=== PATIENT | female | born 1940 | race African-American/Black ===

== ENCOUNTER 2020-09-29 10:16 | Outpatient (CLI) | payer MEDICARE, BC, SELFPAY ==
--- NOTE | ~2020-09-29 | MR_ITS ---
EXAMINATION: MR brain/brain stem wo con EXAM DATE: 09/29/2020 11:16 INDICATION: F03.90 - Unspecified dementia without behavioral disturbance. Memory issue. Tremors. TECHNIQUE: Magnetic resonance imaging (MRI) of the brain/brain stem obtained without contrast. Deyvi al T1, axial diffusion, gradient echo (T2*), T1, T2, FLAIR sequences obtained. There is no prior st udy for comparison. FINDINGS: There are no areas of restricted diffusion to suggest acute infarction. There is no acute hemorrhage seen on the T2*, a hemosiderin sensitive sequence. No intraparenchymal brain mass lesion. 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 Moderate to severe frontal lobe, otherwise mild to moderate white matter hyperintensity consistent with microangiopathy. There is mild prominence of the sulci and ventricles related to cerebral atrophy. There are no extra-axial collections. Flow voids are seen in the cerebral arteries on the T2-weighted sequences consistent with their expected p atency. Patient has had bilateral ocular lens surgery. Soft tissue is unremarkable. IMPRESSION: 1. No acute intracranial findings. 2. Frontal lobe predominant microangiopathy. Reviewed, dictated and finalized at location A.
== END 2020-09-29 10:17 | disposition home or self-care (01) ==
PROVIDERS: PCP Family Medicine; Visit Provider Psychiatry & Neurology Neurology
DX: F03.90 Unspecified dementia, unspecified severity, without behavioral disturbance, psychotic disturbance, mood disturbance, and anxiety (principal); G20 Parkinson's disease
CPT/HCPCS: 70551

== ENCOUNTER 2020-10-02 10:19 | Outpatient (CLI) | payer MEDICARE, BC, SELFPAY ==
--- NOTE | 2020-10-04 09:52 | WPDNEUROLOGY ---
Neurology EEG Report General Information Date of Study: 10/02/20 TEST EEG DIAGNOSIS dementia CONDITION OF RECORDING Awake drowsy and sleep with photic stimulation EEG NUMBER [id number] CLINICAL HISTORY patient reported she has noticed a decline in her memory. EEG DESCRIPTION Whole record consists of low-voltage 15 to 21 hertz per 2nd beta activity during drowsiness. Bilateral symmetrical sleep activity seen during deeper stages of sleep. Photic stimulation produced normal drive. Hyperventilation not done. Non paroxysmal. Nonfocal. Nonlateralizing. IMPRESSION No significant abnormalities noted
== END 2020-10-02 10:20 | disposition home or self-care (01) ==
PROVIDERS: PCP Family Medicine; Visit Provider Psychiatry & Neurology Neurology
DX: F03.90 Unspecified dementia, unspecified severity, without behavioral disturbance, psychotic disturbance, mood disturbance, and anxiety (principal)
CPT/HCPCS: 95816

== ENCOUNTER 2023-06-24 10:24 | Outpatient (CLI) | payer MEDICARE, BC, SELFPAY ==
--- NOTE | 2023-06-24 11:00 | NEURO_ITS ---
Impression: # Complains of increasing numbness of left hand. # Bilateral Carpal Tunnel Syndrome, left more than right. # No ulnar neuropathy. # Mildly abnormal needle/EMG exam in left APB. Nerve Conduction Studies Anti Sensory Summary Table Stim Site NR Peak (ms) P-T Amp (?V) Site1 Site2 Delta-P (ms) Dist (cm) Jose (m/s) Left Median Anti Sensory (2-3nd Digit) Wrist 4.5 41.6 Wrist 2-3nd Digit 4.5 14.0 31 Wrist 4.7 29.1 Wrist 2-3nd Digit 4.5 14.0 31 Right Median Anti Sensory (2-3nd Digit) Wrist 3.9 58.3 Wrist 2-3nd Digit 3.9 14.0 36 Wrist 4.0 87.4 Wrist 2-3nd Digit 3.9 14.0 36 Left Radial Anti Sensory (Base 1st Digit) Wrist 2.1 34.5 Wrist Base 1st Digit 2.1 0.0 Right Radial Anti Sensory (Base 1st Digit) Wrist 2.9 22.8 Wrist Base 1st Digit 2.9 0.0 Left Ulnar Anti Sensory (5th Digit) Wrist 2.9 69.1 Wrist 5th Digit 2.9 14.0 48 Right Ulnar Anti Sensory (5th Digit) Wrist 2.6 39.7 Wrist 5th Digit 2.6 14.0 54 Motor Summary Table Stim Site NR Onset (ms) O-P Amp (mV) Site1 Site2 Delta-0 (ms) Dist (cm) Jose (m/s) Left Median Motor (Abd Poll Brev) Wrist 5.2 2.5 Elbow Wrist 4.4 26.0 59 Elbow 9.6 2.9 Right Median Motor (Abd Poll Brev) Wrist 3.5 1.5 Elbow Wrist 4.9 27.0 55 Elbow 8.4 3.3 Left Ulnar Motor (Abd Dig Minimi) Wrist 2.7 5.4 A Elbow Wrist 5.3 30.0 57 A Elbow 8.0 4.3 Right Ulnar Motor (Abd Dig Minimi) Wrist 2.7 5.8 A Elbow Wrist 4.8 28.0 58 A Elbow 7.5 4.8 F Wave Studies NR F-Lat (ms) L-R F-Lat (ms) Left Median (Mrkrs) (Abd Poll Brev) 27.99 0.76 Right Median (Mrkrs) (Abd Poll Brev) 27.23 0.76 Left Ulnar (Mrkrs) (Abd Dig Min) 26.11 0.76 Right Ulnar (Mrkrs) (Abd Dig Min) 26.87 0.76 EMG Side Muscle Nerve Root Ins Act Fibs Amp Dur Recrt Comment Right 1stDorInt Ulnar C8-T1 Nml Nml Nml Nml Nml Right Ext Indicis Radial (Post Int) C7-8 Nml Nml Nml Nml Nml Right Ext Digitorum Radial (Post Int) C7-8 Nml Nml Nml Nml Nml Right BrachioRad Radial C5-6 Nml Nml Nml Nml Nml Right PronatorTeres Median C6-7 Nml Nml Nml Nml Nml Right Abd Poll Brev Median C8-T1 Nml Nml Nml Nml Nml Right ABD Dig Min Ulnar C8-T1 Nml Nml Nml Nml Nml Left 1stDorInt Ulnar C8-T1 Nml Nml Nml Nml Nml Left Ext Indicis Radial (Post Int) C7-8 Nml Nml Nml Nml Nml Left Ext Digitorum Radial (Post Int) C7-8 Nml Nml Nml Nml Nml Left BrachioRad Radial C5-6 Nml Nml Nml Nml Nml Left PronatorTeres Median C6-7 Nml Nml Nml Nml Nml Left Abd Poll Brev Median C8-T1 Nml Nml Incr >12ms +2 Left ABD Dig Min Ulnar C8-T1 Nml Nml Nml Nml Nml MTDD
== END 2023-06-24 10:25 | disposition home or self-care (01) ==
LOC: ANHNEURO 10:26
PROVIDERS: PCP Family Medicine; Visit Provider Plastic Surgery
DX: G56.03 Carpal tunnel syndrome, bilateral upper limbs (principal); R25.1 Tremor, unspecified; E11.9 Type 2 diabetes mellitus without complications; G31.84 Mild cognitive impairment of uncertain or unknown etiology; R94.131 Abnormal electromyogram [EMG]
CPT/HCPCS: 95886; 95911

== ENCOUNTER 2024-11-19 13:36 | Outpatient (CLI) | payer MEDICARE, BC, SELFPAY ==
--- NOTE | ~2024-11-19 | MR_ITS ---
EXAMINATION: MR brain/brain stem wo con DATE: 11/19/2024 14:17 INDICATION: Tremor, unspecified. TECHNIQUE: Magnetic resonance imaging (MRI) of the brain and brainstem was performed without intravenous contrast. COMPARISON: Brain MRI 09/29/2020 FINDINGS: There is a punctate old microhemorrhage in the left basal ganglia. There is no acute ischemic infarct or abnormal mass lesion. There are scattered areas of nonspecific increased T2-weighted signal intensity in the cerebral white matter, left cerebellar white matter, brandy, thalami, and bilateral basal ganglia. The paranasal sinuses are clear. There are likely changes of ocular lens replacement surgeries. The mastoid air cells are normal. IMPRESSION: 1. Stable extensive nonspecific cerebral and cerebellar white matter disease and disease of the brandy and deep huang nuclei, which likely represents chronic small vessel ischemic disease. Reviewed, dictated and finalized at location E. IMPRESSION: 1. Stable extensive nonspecific cerebral and cerebellar white matter disease an d disease of the brandy and deep huang nuclei, which likely represents chronic sma ll vessel ischemic disease.
== END 2024-11-19 13:37 | disposition home or self-care (01) ==
PROVIDERS: PCP Family Medicine; Visit Provider Psychiatry & Neurology Neurology
DX: R25.1 Tremor, unspecified (principal); G31.84 Mild cognitive impairment of uncertain or unknown etiology; R90.82 White matter disease, unspecified
CPT/HCPCS: 70551

== ENCOUNTER 2024-11-30 12:42 | Outpatient (CLI) | payer MEDICARE, BC, SELFPAY ==
--- OUTSIDE RECORDS SUMMARY | 2024-11-02 08:30 | XMS_ITS ---
Author Organization 1 OF [facility] Address [address] [place] [address] Care Team Providers Care Heel Cementer Name Role Phone Lucian Bond MD Primary Care Provider Unavailab Chris Matos [facility] REASON FOR VISIT High Risk Foot care Encounters Encounter Location Date Provider Diagnosis 1 OF [facility] [address] [place] [address] 11/02/2024 Chris Betancur Plan Of Treatment Next Appt Details Provider Name:Chris Betancur, 01/13/2025 10:30:00 AM, [address], [address], [place], [address], Progress Notes * Haley MARSHALLDOB:[birth year] (84 yo F)Acc No.[id number]:11/02/2024 Progress Note Patient: Haley Vanessa Provider: Ryan Betancur DPM :1940 A ge:84 Y S ex:Female Date:11/02/2024 Address:[facility] [address] [place], [id number] Pcp:Lucian Bond MD Subjective: * Chief Complaints: * H igh Risk Foot care * Electronic signature of Markie Betancur DPM on 11/30/2024 at 12:49 PM CDT Sign off status: Pending * Provider: Ryan Betancur, DPM Date: 0 11/02/2024 Generated for Sultana baker/Kevin/Claire on: 0 11/30/2024 12:49 PM CDT
--- OUTSIDE RECORDS SUMMARY | 2024-11-04 05:30 | XMS_ITS ---
Author Organization [facility] Address [address] [place] [address] Care Team Providers Care Pole Climber Name Role Phone Lucian Bond MD Primary Care Provider Unavailab Chris Matos Unavailable [phone] REASON FOR VISIT SHOE dispense Encounters Encounter Location Date Provider Diagnosis 1 OF [facility] [address] [place] [address] 11/04/2024 Chris Betancur Plan Of Treatment Next Appt Details Provider Name:Chris Betancur, 01/13/2025 10:30:00 AM, [address], [address], [place], [address], Progress Notes * Haley MARSHALLDOB:[birth year] (84 yo F)Acc No.[id number]:11/04/2024 Progress Note Patient: Haley Vanessa Provider: Ryan Betancur DPM :1940 A ge:84 Y S ex:Female Date:11/04/2024 Address:[facility] [address] [place], [place] Pcp:Lucian Bond MD Subjective: * Chief Complaints: * S HOE dispense * Electronic signature of Markie Betancur DPM on 11/30/2024 at 12:49 PM CDT Sign off status: Pending * Provider: Ryan Betancur, DPM Date: 0 11/04/2024 Generated for Sultana baker/Kevin/Claire on: 0 11/30/2024 12:49 PM CDT
--- OUTSIDE RECORDS SUMMARY | 2024-11-04 06:00 | XMS_ITS ---
Author Organization 1 OF [facility] Address [address] [place] [address] Care Team Providers Care Database Development Project Manager Name Role Phone Lucian Bond MD Primary Care Provider Unavail Chris Matos Unavailable Allergies Allergen (clinical drug ingredient) Drug/Non Drug Allergy documented on EMR Reaction Allergy Type Onset Date Status Chocolate (uncoded) Unknown Allergy Active IBP, Sulfa (uncoded) stomach upset Allergy active Peanuts (uncoded) Unknown Allergy Ac tive amoxicillin Amoxicillin Unknown Drug Allergy Act taz ibuprofen Ibuprofen Unknown Drug Allergy Active REASON FOR VISIT High Risk Foot care Medications Medication SIG (Take, Route, Fr equency, Duration) Notes Start Date End Date Status Ketoconazole 2 % Cream 1 application Ext ernally 1-2 times daily for 4-6 weeks 06/15/2024 Active Escitalopram Oxalate Unknown Restasis Active Isosorbide Mononitrate Active Losartan Potassium A ctive PreserVision AREDS A ctive Atorvastatin Calcium Active Fish Oil Active Calcium Active Aspirin Active Spironolactone Activ e Ferrous Sulfate Acti ve Nitroglycerin Active hydrALAZINE HCl Acti ve Pantoprazole Sodium Active Sucralfate Active Iron Complex Active Vitamin D3 Active Ketoconazole Active Vital Signs Height 58 in 11/04/2024 Weight 105 lbs 11/04/2024 BMI 21.94 kg/m2 11/04/2024 Encounters Encounter Location Date Provider Diagnosis [facility] [address] [place] [address] 11/04/2024 Chris Betancur Type 2 diabetes mellitus with other diabetic neurological complication E11.49 ; Callus of foot L84 ; Onychogryphosis L60.2 and Tinea pedis of both feet B35.3 Assessments Encounter Date Diagnosis (ICD Code) Assessment Notes Treatment Notes Treatment Clinical Notes Section Notes 11/04/2024 Type 2 diabetes mellitus with other diabetic neurological complication (ICD-10 - E11.49) Considering the associated comorbidities and physical exam findings today, this patient is at substantial risk of developing serious foot complications in the absence of regular and professional palliative foot care. 11/04/2024 Callus of foot (ICD-10 - L84) 11/04/2024 Onychogryphosis (ICD-10 - L60.2) 11/04/2024 Tinea pedis of both feet (ICD-10 - B35.3) 11/04/2024 Other Plan: - Discontinue daily antifungal cream use as infection cleared - Debridement of calluses performed - Patient education on improved foot care routine - Advised to increase sitting periods throughout day to reduce foot pressure - Follow-up in couple months Interventions: - Callus debridement completed - Post-procedure lotion application - Assistance provided with footwear Evaluation: - Anticipate improved comfort following callus removal - Patient counseled on activity modification and foot care importance Plan Of Treatment Treatment Notes Assessment Notes Type 2 diabetes mellitus wit h other diabetic neurological complication Considering the associated comorbidities and physical exam findings today, this patient is at substantial risk of developing serious foot complications in the absence of regular and professional palliative foot care. Other Plan: - Discontinue daily antifungal cream use as infection cleared - Debridement of calluses performed - Patient education on improved foot care routine - Advised to increase sitting periods throughout day to reduce foot pressure - Follow-up in couple months Interventions: - Callus debridement completed - Post-procedure lotion application - Assistance provided with footwear Evaluation: - Anticipate improved comfort following callus removal - Patient counseled on activity modification and foot care importance Next Appt Details Follow Up: 10-12 weeks or co ntact office PRN with any concerns, Reason: Provider Name:Chris Betancur, 01/13/2025 10:30:00 AM, [address], [place], [address], Procedure Notes * Category Sub-Category Detail Notes PALLIATIVE FOOT CARE: Callus paring: (33803) Fi ve or more calluses as noted above reduced with a sterile scalpel blade Nail debride (18391): Debridement of at least six mycotic and/or hypertrophic nails performed:, utilizing manual and electric debridement the affected nails were reduced the nails in length and thickness with curettage of debris from nail margins performed as needed. Nail thickness reduced by:, 10% History and Physical Notes * HPI (History of Present Illness) Category Sub-Category Detail Notes Category Not es Primary reason for visit: 84 y/o diabetic female RTO for diabetic foot care. Patient reports no acute issues with nails or calluses today. At last visit with Dr. Metcalf, she was advised to continue using ketoconazole cream for tinea pedis. Today, she reports not using ketoconazole cream anymore, but feels she should be. - History of athlete's foot, previously treated with topical antifungal cream (last dispensed 10/01/2024) - Inconsistent use of prescribed topical medications and moisturizers - Very active throughout day with cooking, household activities, frequent stair climbing - Acknowledges being on feet excessively during day - PMHx: diabetes (noted 08/20/2024) MA assisting with visit: Chart Liana Bull Examination Category Sub-Category Detail Notes Category Not es General Examination Mental status: Cooperative, Oriented to person, place and time, Mood and affect: normal, Judgement and intellect: normal with appropriate response to questions Objective: - Athlete's foot appears cleared - Significant nail growth since last visit - Medial first metatarsal callus formation - Bunion present with evidence of shoe friction - Medial DIPJ callus at second toe - Subfifth metatarsal and heel callus formation Shoes today: tennis shoes Constitutional / Appearance: No acute di stress , Well nourished, Appropriate personal hygiene Lower Extremity VASCULAR: Venous insufficiency e tesfaye: Bilateral: leg, ankle, mild Pulses: DP pulse diminished bilateral; , PT pulse nonpalpable b/l Temperature gradient: decreased from pro ximal to distal, bilateral Pedal hair: sparse / absent, temi ateral Lower Extremity NEURO: Monofilament test (10 gram pressure) Exam of 03/30/2024: - - revealed absent sensation to at least two distinct locations of , multiple toes , forefoot , bilateral Vibration perception: Exam of 03/30/2024: - - noted significantly diminished / absent per evaluation with 128Hz tuning fork applied to distal hallux compared to ipsilateral medial malleolus , @ bilateral feet Muscle tone diminished, bilatera l Lower Extremity MSK: Foot deformities: Bilateral: , yu mmertoes Left lower extremity inspection and palp ation: No palpable masses or nodules noted. Right lower extremity inspection and pal pation: No palpable masses or nodules noted. Lower Extremity DERM: Skin: relatively dry, thin, atrophic, no suspicious lesions, bilateral Nails: Nail plates of: TA-T 9 appear elongated, relatively thickened, dystrophic, discolored, incurvated. Hyperkeratotic lesions LEFT foot: medial hallux IPJ, sub 3rd MTH, Medial DIPJ 2nd toe, medial 1st MTH Hyperkeratotic lesions RIGHT foot: sub 5 th MTH, plantar heel Evidence of tinea pedis noted: Compared to prior visit tinea appears improved with decreased erythema and scaling Progress Notes * Haley MARSHALLDOB:[birth year] (84 yo F)Acc No.[id number]:11/04/2024 Progress Note Patient: Ryan Haley Corley Provider: Ryan Betancur DPM :1940 A ge:84 Y S ex:Female Date:11/04/2024 Address:[address] [place], [place] [id number] Pcp:Lucian Bond MD Subjective: * Chief Complaints: * H igh Risk Foot care * HPI: M A assisting with visit:: Liana Wong. Radha duran reason for visit:: 84 y/o diabetic female RTO for diabetic foot care. Patient reports no acute issues with nails or calluses today. At last visit with Dr. Metcalf, she was advised to continue using ketoconazole cream for tinea pedis. Today, she reports not using ketoconazole cream anymore, but feels she should be. - History of athlete's foot, previously treated with topical antifungal cream (last dispensed 10/01/2024) - Inconsistent use of prescribed topical medications and moisturizers - Very active throughout day with cooking, household activities, frequent stair climbing - Acknowledges being on feet excessively during day - PMHx: diabetes (noted 08/20/2024). * Medical History: Diabetes, Anemia, Arthritis, DePression, GERD, High Cholesterol, High Blood pressure, Neuropathy, Pneumonia Arthritis Depression Anemia Hernia Stroke (CVA/TIA) Gastroesophageal reflux disease (GERD) Kidney disease Diabetes High cholesterol High blood pressure Neuropathy of Feet Pneumonia Thyroid disease Medical History Verified * Surgical History: Right foot bunion 2008 Foot/Ankle surgery Surgical History verified. * Hospitalization/Major Diagno stic Procedure: No Hospitalization Documented. Hospitalization Verified. * Family History: F amily History Verified.. Cancer. * Social History: Social History Verified. No Social History documented. * Medications: T akingSucralfate Vitamin D3 Ketoconazole Iron Complex Nitroglycerin hydrALAZINE HCl Spironolactone Ferrous Sulfate Pantoprazole Sodium Fish Oil PreserVision AREDS Atorvastatin Calcium Calcium Aspirin Losartan Potassium Restasis Isosorbide Mononitrate Ketoconazole 2 % Cream 1 application Externally 1-2 times daily for 4-6 weeks Taking Sucralfate Taking Vitamin D3 Taking Ketoconazole Taking Iron Complex Taking Nitroglycerin Taking hydrALAZINE HCl Taking Spironolactone Taking Ferrous Sulfate Taking Pantoprazole Sodium Taking Fish Oil Taking PreserVision AREDS Taking Atorvastatin Calcium Taking Calcium Taking Aspirin Taking Losartan Potassium Taking Restasis Taking Isosorbide Mononitrate Taking Ketoconazole 2 % Cream 1 application Externally 1-2 times daily for 4-6 weeks UnknownEscitalopram Oxalate Medication List reviewed and reconciled with the patientUnknown Escitalopram Oxalate Medication List reviewed and reconciled with the patient * Allergies: A moxicillinIbuprofenPeanutsChocolateIBP, Sulfa: stomach upset - AllergyyesAllergies Verified. Objective: * Vitals: W t:105lbs, Wt-k.63 kg, Ht:58in, BMI:21.94Index. * Examination: G eneral Examination: Constitutional / Appearance: N o acute distress , Well nourished, Appropriate personal hygiene. Mental status: C ooperative, Oriented to person, place and time, Mood and affect: normal, Judgement and intellect: normal with appropriate response to questions. Shoes today: t shaye shoes. O bjective: - Athlete's foot appears cleared - Significant nail growth since last visit - Medial first metatarsal callus formation - Bunion present with evidence of shoe friction - Medial DIPJ callus at second toe - Subfifth metatarsal and heel callus formation. L ower Extremity VASCULAR: : Pulses: D P pulse diminished bilateral; , PT pulse nonpalpable b/l. Temperature gradient: decreased from proximal to distal,bilateral. Pedal hair: s parse / absent, bilateral. Venous insufficiency edema: Bilateral:leg, ankle, mild.? L ower Extremity DERM: : Skin: r elatively dry, thin, atrophic, no suspicious lesions, bilateral. Nails: N ail plates of:TA-[id number] elongated,relatively thickened, dystrophic, discolored, incurvated.. Hyperkeratotic lesions LEFT foot: m edial hallux IPJ, sub 3rd MTH, Medial DIPJ 2nd toe, medial 1st MTH. Hyperkeratotic lesions RIGHT foot: s ub 5th MTH, plantar heel. Evidence of tinea pedis noted: C ompared to prior visit tinea appears improved with decreased erythema and scaling. L ower Extremity NEURO: : Muscle tone d iminished, bilateral. Monofilament test (10 gram pressure) E xam of 03/30/2024:? - - revealed absent sensation to at least two distinct locations of , multiple toes , forefoot , bilateral. Vibration perception: E xam of 03/30/2024: - - noted significantly diminished / absent per evaluation with 128Hz tuning fork applied to distal hallux compared to ipsilateral medial malleolus , @ bilateral feet. L ower Extremity MSK: : Left lower extremity inspection and palpation: N o palpable masses or nodules noted.. Right lower extremity inspection and palpation: N o palpable masses or nodules noted. . Foot deformities: B ilateral:, hammertoes. Assessment: * Assessment: 1. T ype 2 diabetes mellitus with other diabetic neurological complication - E11.49 (Primary)? 2. C allus of foot - L84 3 . O nychogryphosis - L60.2 ? 4 . T inea pedis of both feet - B35.3 Plan: * Treatment: 2. O thers Notes: Plan: - Discontinue daily antifungal cream use as infection cleared - Debridement of calluses performed - Patient education on improved foot care routine - Advised to increase sitting periods throughout day to reduce foot pressure - Follow-up in couple months Interventions: - Callus debridement completed - Post-procedure lotion application - Assistance provided with footwear Evaluation: - Anticipate improved comfort following callus removal - Patient counseled on activity modification and foot care importance * Procedures: P ALLIATIVE FOOT CARE:: Callus paring: ( [id number]) Five or more calluses as noted above reduced with a sterile scalpel blade. Nail debride (56710): D ebridement of at least six mycotic and/or hypertrophic nails performed:, utilizing manual and electric debridement the affected nails were reduced the nails in length and thickness with curettage of debris from nail margins performed as needed. Nail thickness reduced by:, 10%. * Preventive Medicine: Counseling: C are goal follow-up plan: BMI counseling provided to patient:?Lifestyle education Screenings: F ALL RISK SCREENING Fall Risk Assessment: O ne fall without injury in the past year * Follow Up: 1 0-12 weeks or contact office PRN with any concerns Billing Information: * Procedure Codes: 20964 DEBRIDE NAIL, 6 OR MORE. Modifiers: Q8, 59 [id number] TRIM SKIN LESIONS, OVER 4. Modifiers: Q8 * Electronic signature of Markie Betancur DPM on 11/30/2024 at 12:49 PM CDT Sign off status: Pending * Provider: Ryan Bteancur DPM Date: 0 11/04/2024 Generated for Sultana baker/Kevin/Claire on: 0 11/30/2024 12:49 PM CDT
--- OUTSIDE RECORDS SUMMARY | 2024-11-30 12:49 | XMS_ITS ---
[facility] 11th [place] [address] [place] [address] Bishop Linda MD Dysphonia (Primary Dx); Voice tremor 09/09/2024 10:40 AM CDT Lab [facility] [address] [place] [phone] from Last 3 Months Surgical History Surgery Date Site/Laterality Comments UT DILATION & CURETTAGE DX&/THER NONOBSTETRIC Dilation And Curettage - (Added by TW Conv) EXOSTECTOMY Simple Bunion Exostectomy (Silver Procedure) - (Added by TW Conv) UT UNLISTED PROCEDURE DENTOALVEOLAR STRUCTURES Oral Surgery Tooth Extraction - (Added by TW Conv) CATARACT EXTRACTION Cataract Surgery - (Added by TW Conv) EYE SURGERY Eye Surgery - LASER SURGERY (Added by TW ) COLONOSCOPY UPPER GASTROINTESTINAL ENDOSCOPY ADENOIDECTOMY when i was about 5 years od Medical History Medical History Date Comments Personal history of arthritis Ar thritis - (Added by TW Conv) Cardiac murmur Murmur - (Added by TW Conv) Gastric ulcer without hemorrhage or perforation Gastric ulcer - (Added by TW Conv) Cerebral infarction Stroke syndr ome - (Added by TW Conv) Personal history of other diseases of the circulatory system History of hypertension - (Added by TW Conv) Personal history of other diseases of the respiratory system Personal history of asthma - (Added by TW Conv) Personal history of other endocrine, nutritional and metabolic disease History of type 2 diabetes mellitus - (Added by TW Conv) Anxiety disorder Anxiety - (Adde d by TW Conv) Personal history of diseases of the blood and blood-forming organs and certain disorders involving the immune mechanism History of anemia - (Ad ded by TW Conv) Personal history of other diseases of the digestive system History of constipation - (Added by TW Conv) Personal history of healed traumatic fracture History of fracture of ankle - (Added by TW Conv) Personal history of other diseases of the digestive system History of esophageal reflux - (Added by TW Conv) Swelling, mass, or lump in h ead and neck Neck Cervical Mass Lateral (Cm) Cystic Anterior Deep To SCM - (Added by TW Conv) Spinal stenosis of cervical region Stenosis, cervical spine - (Added by TW Conv) Mastodynia Mastodynia - (Ad ded by TW Conv) Encounter for screening for malignant neoplasm of cervix Screening for malignant neoplasm of cervix - (Added by TW Conv) Hoarding disorder Hoarding behav ior - (Added by TW Conv) Generalized anxiety disorder Anx iety in acute stress reaction - (Added by TW Conv) Major depressive disorder, single episode Moderate depressive disorder - (Added by TW Conv) Major depressive disorder, recurrent, moderate (HCC) Major depressive disorder, recurrent episode, moderate with anxious distress - (Added by TW Conv) Postmenopausal bleeding PMB (pos tmenopausal bleeding) - (Added by TW Conv) Personal history of other specified conditions History of abdominal pain - (Added by TW Conv) Postmenopausal atrophic vaginitis Vaginal atrophy - (Added by TW Conv) Other pruritus Vaginal itching - (Added by TW Conv) Pelvic and perineal pain Pelvic pain - (Added by TW Conv) Encounter for gynecological examination without abnormal finding 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 - (Added by TW Conv) Anxiety Arthritis Diabetes mellitus (HCC) Peripheral neuropathy Hypertension Osteoporosis Stroke (HCC) Varicella Weight loss Motion sickness Chronic constipation GERD (gastroesophageal reflu x disease) at age19 Anemia Polycystic ovary syndrome TIA (transient ischemic attack) Thyroid disease over 50years ago Dizziness about 50years ago Headache canot remember HL (hearing loss) about 40 years ago Allergic rhinitis Dental disease when i was about 12 years old Nosebleed Sinusitis over 40 years ago Voice disorder voice became hoarse over 50 years ago Family History Medical History Relation Name Comments Prostate cancer Father Prostate Can cer - (Added by TW Conv) Stroke Mother Stroke Syndrome - (Added by TW Conv) Stroke Mother's Sister 1 Stroke Syn drome - (Added by TW Conv) Hypertension Mother's Sister 2 Hypertensi on - (Added by TW Conv) Diabetes Other Diabetes Mellit us - several aunts (Added by TW Conv) Relation Name Status Comments Father Mother Mother's Sister 1 Mother's Sister 2 Other Social History Tobacco Use Types Packs/Day Years Used Date Smoking Tobacco: Never Smokeless Tobacco: Never Alcohol Use Standard Drinks/Week Comments No 0 (1 standard drink = 0.6 oz pur e alcohol) Social Connection and Isolation Panel Answer Date Recorded In a typical week, how many times do you talk on the phone with family, friends, or neighbors? More than three times a week 08/21/2022 How often do you get togethe r with friends or relatives? Once a week 08/21/2022 How often do you attend [facility] or voodoo services? More than 4 times per year 08/21/2022 Do you belong to any clubs o r organizations such as mosque groups, unions, fraternal or athletic groups, or school groups? No 08/21/2022 How often do you attend meet ings of the clubs or organizations you belong to? Never 08/21/2022 Are you , , di vorced, , never , or living with a partner? 08/21/2022 AUDIT-C Answer Date Recorded Q1: How often do you have a drink containing alcohol? Never 03/26/2024 Q2: How many drinks containi ng alcohol do you have on a typical day when you are drinking? Patient does not drink Q3: How often do you have si x or more drinks on one occasion? Never 03/26/2024 Overall Financial Resource Strain (CARDIA) Answe r Date Recorded How hard is it for you to pa y for the very basics like food, housing, medical care, and heating? Not hard at all 08/21/2022 Hunger Vital Sign Answer Date Recorded Within the past 12 months, y ou worried that your food would run out before you got the money to buy more. Never true 08/22/19 23 Within the past 12 months, t he food you bought just didn't last and you didn't have money to get more. Never true 08/21/2022 PRAPARE - Transportation Answer Date Re corded In the past 12 months, has l ack of transportation kept you from medical appointments or from getting medications? No 08/08 In the past 12 months, has l ack of transportation kept you from meetings, work, or from getting things needed for daily living? No 08/21/2022 Housing Stability Vital Sign Answer Temo e Recorded In the last 12 months, was t here a time when you were not able to pay the mortgage or rent on time? No 08/21/2022 In the last 12 months, how many places have you lived? 1 08/21/2022 In the last 12 months, was t here a time when you did not have a steady place to sleep or slept in a retirement (including now)? No 08/21/2022 Personal Safety Answer Date Recorded Have you ever been in or are you currently in a harmful physical or emotional relationship or is someone making you feel afraid or unsafe? 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 Not on file Not on file Not on file Obstetrics History Last Filed Vital Signs Vital Sign Reading Time Taken Comments Blood Pressure 135/84 10/08/2024 10:39 AM CDT Pulse 77 10/08/2024 10:39 AM CDT Temperature 36 C (96.8 F) 03/26/2024 9:53 AM GAS CUTTING MACHINE OPERATOR Respiratory Rate 19 03/26/2024 10:10 AM GAS CUTTING MACHINE OPERATOR Oxygen Saturation 95% 10/08/2024 10:39 AM CDT Inhaled Oxygen Concentration - - Weight 48.1 kg (106 lb) 10/08/2024 10:39 AM CDT Height 142.2 cm (4' 8) 10/08/2024 10:39 AM CDT Body Mass Index 23.76 10/08/2024 10:39 AM CDT Plan of Treatment Health Maintenance Due Date Last Done Comments Depression Screening 1940 Foot Exam 1940 DTaP/Tdap/Td Vaccine (1 - Tdap) 07/30/1951 Hepatitis B Screening 1958 Zoster Vaccine (1 of 2) 1990 Well Visit 65+ 2005 Pneumococcal vaccine 65+ (2 of 2 - PCV) 01/25/2016 01/24/2015 Lipid Panel 06/28/2022 06/28/2021, 09/0 09/2018, 09/02/2017, Additional history exists Fall Risk Assessment 08/27/2023 08/26/2022 Osteoporosis Screening-Bone Density Scan 04/02/2024 04/02/2022, 10/26/2021, 12/23/2014, Additional history exists Influenza Vaccine (#1) 2024 8, 11/11/2016, 12/31/2015, Additional history exists Hemoglobin A1C 03/12/2025 09/09/2024, 04/11, 08/21/2022, Additional history exists Dilated Eye Exam 05/03/2025 05/03/2024, , 09/21/2021, Additional history exists Albumin Creatinine Ratio, Urine 05/07/2025 eGFR 09/09/2025 09/09/2024, 04/11, 09/07/2022, Additional history exists Procedures Procedure Name Priority Date/Time Associated Diagnosis Comments BURGER VISUAL FIELD - OU - BOTH EYES Routine 11/05/2024 11:46 AM CDT Primary open angle glaucoma (POAG) of both eyes, mild stage EGFR Routine 09/09/2024 11:00 AM CDT DIFFERENTIAL AUTO Routine 09/09/2024 11: 00 AM CDT HEMOGLOBIN A1C Routine 09/09/2024 11:00 AM CDT VITAMIN D 25 HYDROXY Routine 09/09/2024 11:00 AM CDT CBC WITH AUTO DIFFERENTIAL Routine 09/09/2024 11:00 AM CDT RENAL FUNCTION PANEL Routine 09/09/2024 11:00 AM CDT PROTEIN / CREATININE RATIO, URINE, RANDOM Routine 09/09/2024 10:52 AM CDT URINALYSIS, MACROSCOPIC Routine 09/09/2024 10:52 AM CDT ALBUMIN CREATININE RATIO, URINE Routine 05/07/2024 9:45 AM GAS CUTTING MACHINE OPERATOR DEXA AXIAL SKELETON BONE DENSITY 1 OR MORE SITES Schedule Routine, Read Routine (OP Routine) 04/02/2022 9:18 AM GAS CUTTING MACHINE OPERATOR Encounter for screening for osteoporosis TNI WITH LIPID PANEL Routine 11/14/2018 2:55 PM CDT from Last 3 Months or Most Recently Relevant to Health Maintenance Results * Burger Visual Field - OU - Both Eyes (11/05/2024 11:46 AM CDT) Pattern Deviation OS 1.88 dB CONTINUUM Pattern Deviation OD 1.46 dB CONTINUUM Mean Deviation OS -0.46 dB CONTINUUM Mean Deviation OD 0.81 dB CONTINUUM Anatomical Region Laterality Modality Head Visual Field Narrative 11/05/2024 11:46 AM CDT Right Eye Fixation was borderline. Cooperation was good. Reliability was good. Foveal threshold was normal. Findings include normal observations. Mean Deviation was 0.81 dB. Pattern Deviation was 1.46 dB. Left Eye Fixation was borderline. Cooperation was good. Reliability was good. Foveal threshold was normal. Findings include normal observations. Mean Deviation was -0.46 dB. Pattern Deviation was 1.88 dB. Notes Right eye (OD): full Left eye (OS): non specific, stable to prior, possible small inf nasal bjerrum scotoma vs artifact Harper Lombardo OD OPHTH VISUAL FIELD Final R esult * (ABNORMAL) eGFR (09/09/2024 11:00 AM CDT) eGFR 35(L) >=60 mL/min/1. 73 m2 Comment: Interpretive Data Reference Interval Normal >/= 90 mL/min/1.73m2 Mildly decreased* 60 - 89 mL/min/1.73m2 Mildly to moderately decreased 45 - 59 mL/min/1.73m2 Moderately to severely decreased 30 - 44 mL/min/1.73m2 Severely decreased 15 - 29 mL/min/1.73m2 Kidney Failure < 15 mL/min/1.73m2 *Relative to young adult level Estimated glomerular filtration rate is determined by the 2020 CKD-EPI equation recommended by the National Kidney Foundation (A Unifying Approach to GFR Estimation: Recommendations of the NKF-ASK Task Force on Reassessing the Inclusion of Race in Diagnosing Kidney Disease, JASN 2020). The CKD-EPI equation should not be used for patients with unstable renal function and has not been validated in children and those over 70. Current interpretive data was last reviewed 2021. Blood 09/09/2024 11:0 0 AM CDT 09/09/2024 11:50 AM CDT Jonatan Ruvalcaba MD LAB BLOOD ORDERABLES Final Resul t [facility] Department [place] [address] * Differential, auto (09/09/2024 11:00 AM CDT) Neutrophil abs 2.82 1.50 - 6.50 K/cumm Imm gran abs 0.01 0.00 - 0.10 K/cumm [facility] Lymphocyte abs 1.43 0.80 - 3.30 K/cumm [facility] Monocyte abs 0.42 0.20 - 0.80 K/cumm [facility] Eosinophil abs 0.19 0.00 - 0.50 K/cumm [facility] Basophil abs 0.04 0.00 - 0.10 K/cumm [facility] Neutrophil pct 57.4 % [facility] Comment: Interpretive Data Percent cell count reference ranges are not reported, since discordance with absolute values may lead to misinterpretation of CBC data. Current Interpretive Data was last revised on 2017. Imm gran pct 0.2 % [facility] Comment: Interpretive Data Percent cell count reference ranges are not reported, since discordance with absolute values may lead to misinterpretation of CBC data. Current Interpretive Data was last revised on 2017. Lymphocyte pct 29.1 % [facility] Comment: Interpretive Data Percent cell count reference ranges are not reported, since discordance with absolute values may lead to misinterpretation of CBC data. Current Interpretive Data was last revised on 2017. Monocyte pct 8.6 % [facility] Comment: Interpretive Data Percent cell count reference ranges are not reported, since discordance with absolute values may lead to misinterpretation of CBC data. Current Interpretive Data was last revised on 2017. Eosinophil pct 3.9 % [facility] Comment: Interpretive Data Percent cell count reference ranges are not reported, since discordance with absolute values may lead to misinterpretation of CBC data. Current Interpretive Data was last revised on 2017. Basophil pct 0.8 % [facility] Comment: Interpretive Data Percent cell count reference ranges are not reported, since discordance with absolute values may lead to misinterpretation of CBC data. Current Interpretive Data was last revised on 2017. Blood 09/09/2024 11:0 0 AM CDT 09/09/2024 11:52 AM CDT Jonatan Ruvalcaba MD LAB BLOOD ORDERABLES Final Resul t Performing Organization Address [facility] Co de Phone Number [facility] [address] [place] [address] * (ABNORMAL) CBC with auto differential (09/09/2024 11:00 AM CDT) WBC 4.91 3.80 - 9.90 K/cumm Hgb 10.2(L) 11.9 - 15.5 g/dL [facility] Hct 33.3(L) 35.6 - 45.5 % [facility] Plt 239 150 - 400 K/cumm [facility] MPV 10.2 9.1 - 12.3 fL [facility] RBC 3.47(L) 3.90 - 5.20 M/cumm [facility] MCV 96.0 81.3 - 96.4 fL [facility] MCH 29.4 27.1 - 33.3 pg [facility] MCHC 30.6(L) 32.3 - 35.7 g/dL [facility] RDW CV 12.2 11.1 - 14.9 % [facility] RDW SD 42.5 35.7 - 48.1 fL [facility] NRBC abs 0.00 0.00 - 0.01 K/cumm [facility] Blood 09/09/2024 11:0 0 AM CDT 09/09/2024 11:52 AM CDT Jonatan Ruvalcaba MD LAB BLOOD ORDERABLES Final Resul t Performing Organization Address [facility] Co de Phone Number [facility] [address] [place] [address] * Vitamin D 25 hydroxy (09/09/2024 11:00 AM CDT) Pathologist [facility] Vitamin D 25-OH 43.0 30.0 - 80.0 ng/mL Blood 09/09/2024 11:0 0 AM CDT 09/09/2024 11:50 AM CDT Jonatan Ruvalcaba MD LAB BLOOD ORDERABLES Final Resul t Performing Organization Address [facility] de Phone Number [facility] [address] [address] * Hemoglobin A1c (09/09/2024 11:00 AM CDT) Pathologist [facility] Hgb A1C 5.3 4.0 - 5.6 % Estimated Average Glucose 105 mg/dL [facility] Comment: The ADA recommends reporting an estimated Average Glucose (eAG) with all Hemoglobin A1c results using the equation derived from a study of 507 normal and diabetic adults. Minority populations were underrepresented and children were not included. (Diabetes Care 31:6215-0160, 2008). The eAG is not equivalent to a fasting glucose. Blood 09/09/2024 11:0 0 AM CDT 09/09/2024 11:52 AM CDT Jonatan Ruvalcaba MD LAB BLOOD ORDERABLES Final Resul t Performing Organization Address [facility] de Phone Number [facility] [address] [address] * (ABNORMAL) Renal function panel (09/09/2024 11:00 AM CDT) [facility] Sodium 145 135 - 145 mmol/L Potassium, pl 4.7 3.3 - 4.9 mmol/L [facility] Chloride 107 97 - 110 mmol/L [facility] CO2 27 22 - 32 mmol/L [facility] Anion gap 11 2 - 15 mmol/L [facility] BUN 40(H) 6 - 25 mg/dL [facility] Creatinine 1.48(H) 0.60 - 1.10 mg/dL [facility] Glucose 115 70 - 199 mg/dL [facility] Comment: Interpretive Data Fasting glucose >/= 126 mg/dl is diagnostic for diabetes. Fasting is defined as no caloric intake for at least 8 hours. Fasting glucose between 100 mg/dl to 125 mg/dl is diagnostic of prediabetes. In a patient with classic symptoms of hyperglycemia or hyperglycemic crisis, a random glucose >/= 200 mg/dl is diagnostic for diabetes. In the absence of unequivocal hyperglycemia, results should be confirmed by repeat testing. The classification and Diagnosis of Diabetes Diabetes Care 2021; 46: S19-S40. Current interpretive data was last revised 2022. Calcium 10.8(H) 8.5 - 10.3 mg/dL [facility] Phosphorus, pl 3.7 2.3 - 4.5 mg/dL [facility] Albumin 4.7 3.5 - 5.0 g/dL [facility] Blood 09/09/2024 11:0 0 AM CDT 09/09/2024 11:50 AM CDT us Jonatan Ruvalcaba MD LAB BLOOD ORDERABLES Final Resul t [facility] [address] [facility] Department [place] [address] * Urinalysis, macroscopic Urine (09/09/2024 10:52 AM CDT) Color, ur Yellow Yellow Clarity, ur Clear Clear [facility] Specific gravity, ur 1.017 1.003 - 1.030 [facility] pH, urine 5.5 [facility] Comment: Interpretive Data U rine pH is affected by diet, medications, systemic acid-base disturbances, and renal tubular function. pH may affect urinary stone formation. For example, urine pH below 6.0 may help reduce the tendency for calcium phosphate stones and pH greater than 6.0 may reduce the tendency for uric acid stone formation. Source: [facility] Current Interpretive Data was last revised on 2017 Protein, ur ql Negative Negative [facility] Glucose, ur ql Negative Negative [facility] Ketones, ur Negative Negative [facility] Bilirubin, ur Negative Negative [facility] Blood, ur Negative Negative [facility] Urobilinogen, ur <2.0 <2.0 mg/dL [facility] Nitrite, ur Negative Negative [facility] Leukocyte esterase, ur Negative Negative [facility] Urine 09/09/2024 10:5 2 AM CDT 09/09/2024 11:55 AM CDT Result [facility] Jonatan Ruvalcaba MD LAB MICROBIOLOGY - GENERAL ORDER DIMITRIS Final Result Performing Organization Address [facility] de Phone Number [address] [address] * (ABNORMAL) Protein / creatinine ratio, urine, random (09/09/2024 10:52 AM CDT) Protein, ur, quant 54.0 mg/dL Comment: Interpretive Data No reference range established. Current interpretive data was last revised 2018. Creatinine Ur 103.0 mg/dL [facility] Comment: Interpretive Data No reference range established. Current interpretive data was last revised 2018. Protein/creatinin e ratio 524.3(H) 0.0 - 180.0 mg/g CR [facility] Urine 09/09/2024 10:5 2 AM CDT 09/09/2024 11:55 AM CDT Result [facility] Jonatan Ruvalcaba MD LAB URINE ORDERABLES Final Resul t Performing Organization Address [facility] de Phone Number [address] [address] * Albumin Creatinine Ratio, Urine (05/07/2024 9:45 AM GAS CUTTING MACHINE OPERATOR) Albumin Ur 21.1 mg/L Comment: Interpretive Data No reference range established. Current interpretive data was last revised 2018. Creatinine Ur 104.0 mg/dL [facility] Comment: Interpretive Data No reference range established. Current interpretive data was last revised 2018. Albumin Creatinine Ratio, Ur 20 1 - 29 mg/g [facility] Urine 05/07/2024 9:45 AM GAS CUTTING MACHINE OPERATOR 05/07/2024 10:12 AM GAS CUTTING MACHINE OPERATOR Jonatan Ruvalcaba MD LAB URINE ORDERABLES Final Resul t Performing Organization Address [facility] de Phone Number [address] Department [place] [address] * Dexa Axial Skeleton Bone Density 1 or 2 Site (04/02/2022 9:18 AM GAS CUTTING MACHINE OPERATOR) Anatomical Region Laterality Modality Body N/A Mammography 04/03/2022 6:15 AM GAS CUTTING MACHINE OPERATOR Narrative 04/03/2022 6:43 AM GAS CUTTING MACHINE OPERATOR EXAM DESCRIPTION: DEXA AXIAL SKELETON BONE DENSITY 1 OR MORE SITES REASON FOR STUDY: 81 y/o year old F with given history of screening. 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 FINDINGS: AP LUMBAR SPINE L1-L4: Total BMD is 0.994 g/cm2 T-score is -1.4 Dissimilar scan types or analysis methods precludes assessment for calculating a significant change. LEFT HIP: Total BMD is 0.887 g/cm2 T-score is -0.9 Dissimilar scan types or analysis methods precludes assessment for calculating a significant change. Femoral neck BMD is 0.815 g/cm2 T-score is -1.0 FRAX: 10 year risk for a major osteoporotic fracture is 4.3 %, 10 year risk for a hip fracture is 0.7 % IMPRESSION: Based on the lumbar spine bone mineral density (T-score -1.4 ) the patient has low bone mass . REFERENCE: Bone mineral density: Normal (T-score above or = -1.0) Low bone mass (T-score between -1.0 and -2.5) replaces the previously used term osteopenia Osteoporosis (T-score = or below -2.5) Medical evaluation for secondary causes of low bone mineral density may be appropriate. FRAX is a World Health Organization validated fracture risk assessment tool that calculates a person's 10 year probability of a major osteoporosis related fracture and hip fracture. According to the National Osteoporosis Foundation guidelines, postmenopausal women and men age 50 or older with low bone mass and a 10 year probability of a major osteoporosis related fracture = or greater than 20% or a 10 year probability of a hip fracture = or greater than 3% should be considered for treatment. For further information, including treatment recommendations, please refer to the 2013 ISCD Official Positions (http://www.iscd.org) and the NOF's Clinician's Guide to Prevention and Treatment of Osteoporosis (http://www.nof.org/professionals/clinical-guidelines) THIS IS AN ELECTRONICALLY VERIFIED FINAL REPORT 04/03/2022 6:43 AM - Electronically signed by Rehan Simon M.D. MF: NABIL Report ID: [id number] Reading Location: [id number] Procedure Note Rehan Simon MD - 04/03/2022 EXAM DESCRIPTION: DEXA AXIAL SKELETON BONE DENSITY 1 OR MORE SITES REASON FOR STUDY: 81 y/o year old F with given history ofscreening. 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 FINDINGS: AP LUMBAR SPINE L1-L4: Total BMD is 0.994 g/cm2 T-score is -1.4 Dissimilar scan types or analysis methods precludes assessment for calculating a significant change. LEFT HIP: Total BMD is 0.887 g/cm2 T-score is -0.9 Dissimilar scan types or analysis methods precludes assessment for calculating a significant change. Femoral neck BMD is 0.815 g/cm2 T-score is -1.0 FRAX: 10 year risk for a major osteoporotic fracture is 4.3 %, 10 year risk fora hip fracture is 0.7 % IMPRESSION: Based on the lumbar spine bone mineral density (T-score-1.4 ) the patient has low bone mass . REFERENCE: Bone mineral density: Normal (T-score above or = -1.0) Low bone mass (T-score between -1.0 and -2.5) replaces thepreviously used term osteopenia Osteoporosis (T-score = or below -2.5) Medical evaluation for secondary causes of low bone mineral density may be appropriate. FRAX is a World Health Organization validated fracture risk assessmenttool that calculates a person's 10 year probability of a major osteoporosisrelated fracture and hip fracture. According to the National OsteoporosisFoundation guidelines, postmenopausal women and men age 50 or older with low bonemass and a 10 year probability of a major osteoporosis related fracture = or greater than 20% or a 10 year probability of a hip fracture = or greaterthan 3% should be considered for treatment. For further information, including treatment recommendations, please referto the 2013 ISCD Official Positions (http://www.iscd.org) and the NOF's Clinician's Guide to Prevention and Treatment of Osteoporosis (http://www.nof.org/professionals/clinical-guidelines) THIS IS AN ELECTRONICALLY VERIFIED FINAL REPORT 04/03/2022 6:43 AM - Electronically signed by Rehan Simon M.D. MF: [id number] Report ID: [id number] Reading Location: [place] [address] Sammi Taylor HAZARDOUS SUBSTANCES SCIENTIST IMG DXA PROCEDURES Final Re sult * TNI with LIPID PANEL (11/14/2018 2:55 PM CDT) Troponin I <0.300 0.000 - 0.300 ng/mL [facility] Comment: Reference using DANNY Chemiluminescence Negative: Repeat in 4-6 hours as indicated. Triglycerides 39 0 - 149 mg/dL [facility] Comment: National Lipid Association/NCEP Guidelines: Normal < 150 mg/dL Borderline high 150-199 mg/dL High 200-499 mg/dL Very High >=500 mg/dL Cholesterol 163 0 - 199 mg/dL [facility] Comment: National Lipid Association/NCEP Guidelines: Desirable < 200 mg/dL Borderline high: 200-239 mg/dL High Risk: >=240 mg/dL HDL Cholesterol 109 mg/dL [facility] Comment: Reference Ranges: Males: >=40 mg/dL Females: >=50 mg/dL LDL Cholesterol, Calc 46 0 - 129 mg/dL [facility] Comment: National Lipid Association/NCEP Guidelines: Optimal < 100 mg/dL Near Optimal 100-129 mg/dL Borderline high 130-159 mg/dL High >=160 mg/dL Cholesterol/HDL Ratio 1.5 [facility] Comment: Optimal < 3.5:1 High > 5:1 11/14/2018 2:55 PM CDT 11/14/2018 2:59 PM CDT Narrative [facility] - 11/14/2018 3:31 PM CDT Comment Glucose, blood, POC Resulting Agency Comment ER us [facility]LOOD ORDERABLES Final Res ult [facility] [address] [place] [address], [facility] [phone] from Last 3 Months or Most Recently Relevant to Health Maintenance Insurance MEDICARE [facility] [place] MED[place] MEDICARE [facility] [place] Advance Directives For more information, please contact: [phone] * LIMITED - No CPR (Latest Code Status on File) Date Activated Date Inactivated Comments 08/20/2022 5:19 PM 08/26/2022 8:57 PM Question Answer Comments Provide aggressive medical m anagement before a full cardiopulmonary arrest occurs. Use antibiotics, IV Fluids, and medical treatment unless specifically selected below: No intubation Healthcare Agents on File Name Relationship Healthcare Agent [facility] p Communication Fela Mccullough Daughter Health Care Agent Care Teams Stamping Operator Relationship Specialty Start Date End Date Lucian Bond MD [address] [address] PCP - General 05/19/19
--- OUTSIDE RECORDS SUMMARY | 2024-11-30 12:49 | XMS_ITS | Patient Health Record ---
Author Organization [facility] Address [address] [address] Care Team Providers Care Colors Custodian Name Role Phone Piper Guardadoir Primary Care Provider [phone] Reason For Referral No Information Medications Medication SIG (Take, Route, Frequency, Duration) Notes Start Date End Date Status Mikey-Mag 1TAB PO DAILY [facility] Active Cod Liver Oil 1CAP PO DAILY [facility] Active GNP Evening Licking Oil 1000MG PO [facility] Active Omeprazole 40MG PO DAILY [facility] Act taz Losartan Potassium 100MG PO DAILY [facility] Active metFORMIN HCl 500MG PO AM [facility] Active Lumigan 0.01% OP PM [facility] Activ e Restasis 0.05% OP BID [facility] Acti ve amLODIPine Besylate 5MG PO DAILY [facility] Active ISOSORBIDE MONONITRATE ER 30MG PO DAILY [facility] Active NITROSTAT 0.4 MG TAB 0.4MG SL PRN Active Immunizations Vaccine Route Administration Date Status Comme nts Influenza (split), 3 yrs and above Unknown 12/03/2013 P ending Inactivated Problems Problem Type SNOMED Code ICD Code Onset Dates Problem Status W/U Status Risk Notes Problem Diabetes mellitus (52136437) Diabetes mellitus (250) Active confirmed Problem Type II diabetes mellitus uncontrolled (197866038) Diabetes mellitus without mention of complication, type II or unspecified type, uncontrolled (250.02) Active confirmed Problem Vitamin D deficiency (48148729) Unspecified vitamin D deficiency (268.9) Active confirmed Problem 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 Problem Hyperlipidemia (16404244) Other and unspecified hyperlipidemia (272.4) Active confirmed Problem Neurosis (939913944) Anxiety, 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 Problem Depressive disorder (28511029) Depressive disorder, not elsewhere classified (311) Active confirmed Problem Aortic valve disorder (1806636) Aortic valve disorders (424.1) Active confirmed Problem Visual disturbance (05148286) Other specified visual disturbances (368.8) Active confirmed Problem Essential hypertension (01578169) Unspecified essential hypertension (401.9) Active confirmed Problem Esophageal reflux (161192018) Esophageal reflux (530.81) Active confirmed Problem Backache (183780688) Unspecified backache (724.5) Active confirmed Problem Degeneration of cervical intervertebral disc (99707120) Degeneration of cervical intervertebral disc (722.4) Active confirmed Problem Cervicalgia (08349914) Cervicalgia (723.1) Active confirmed Problem Dizziness and giddiness (914706357) Dizziness and giddiness (780.4) Active confirmed Problem Symptoms involvi ng head and neck (784) Active confirmed Problem Heart murmur (800362933) Undiagnosed cardiac murmurs (785.2) Active confirmed Problem Shortness of breath (808871065) Shortness of breath (786.05) Active confirmed Problem Electrocardiogram abnormal (615564923) Nonspecific abnormal electrocardiogram (ECG) (EKG) (794.31) Active confirmed Plan Of Treatment No Information Insurance Providers Payer Name Payer Address Payer Phone Subscriber Number Group Number Insured Name Patient Relationship to Insured Coverage Start Date Coverage End Date MEDICARE PART AB [address] [place] [phone] [id number] CHANO GIBSON Self - patient is the insured [facility] 121 PPO [address] [place], [place] [id number] CHANO GIBSON Self - patient is the insured Medical (General) History Surgical History Surgery Date(Month/Year) biopsy left breast ; biopsy of bladder ; Cataract Surgery ; DNC ; Foot Surgery ; oral surgery ; Tonsil Surgery ;
--- OUTSIDE RECORDS SUMMARY | 2024-11-30 12:49 | XMS_ITS | Encounter Summary ---
Author Organization [facility] Healthcare Address [address] [place] [address] Care Team Providers Care Baby Counselor Name Role Phone Lucian Bond MD Primary Care Provider [phone] Encounter Details Date Type Department Care Team (Late st Contact Info) Description 03/18/2023 Documentation [facility] OP Physical Therapy [address] [place] [address] Sadie Pettit, PT Social History Tobacco Use Types Packs/Day Years [...] week 08/21/2022 How often do you attend chur or gnosticist services? More than 4 times per year 08/21/2022 Do you belong to any clubs o r organizations such as jehovah's witness groups, unions, fraternal or athletic groups, or school groups? No 08/21/2022 How often do you attend meet ings of the clubs or organizations you belong to? Never 08/21/2022 Are you , , di vorced, , never , or living with a partner? 08/21/2022 AUDIT-C Answer Date Recorded Q1: How often do you have a drink containing alcohol? Never 08/21/2022 Q2: How many drinks containi ng alcohol do you have on a typical day when you are drinking? Patient does not drink Q3: How often do you have si x or more drinks on one occasion? Never 08/21/2022 Overall Financial Resource Strain (CARDIA) Answe r [...] place to sleep or slept in a residential (including now)? No 08/21/2022 Personal Safety Answer Date Recorded Have you ever been in or are you currently in a harmful physical or emotional relationship or is someone making you feel afraid or unsafe? 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 difficile Comment:03/25/24 Patient received Vanc po after positive C. Diff on 09/07/24 for 10 days. No further issue with C. Diff. S&S after Tx. Resolve. ML 08/20/2022 09/07/2022 03/25/2024 5:[address] documented as of this encounter Care Teams Baby Counselor Relationship Specialty Start Date End Date Lucian Bond MD [address] [address] PCP - General 05/19/19 documented as of this encounter
--- OUTSIDE RECORDS SUMMARY | 2024-11-30 12:49 | XMS_ITS | Clinical Summary ---
Author Organization [facility] Address [address] [place] [address] Phone Care Team Providers Care Pipe Organ Mechanic Apprentice Name Role Phone Lucian Bond MD Primary Care Provider [phone] Allergies Active Allergy Reactions Criticality Noted Date Comments Amoxicillin nausea 04/05/2024 Atorvastatin Elevated Liver Enzyme Low 04/05/2024 Ibuprofen Vomiting,nausea 04/05/2024 Iodinated Contrast Media 04/05/2024 Peanut Oil Rash Low 04/05/2024 Penicillins Vomiting,nausea 04/05/2024 Sulfa Antibiotics Hives 04/05/2024 Wheat 04/05/2024 Medications aspirin (ST LAURA) 81 MG EC tablet Take 81 mg by mouth 1 (one) time each day Active Calcium Carbonate-Vitamin D (CALCIUM 600+D PO) Take 1 tablet by mouth Active omega-3 (FISH OIL) 1200 MG capsule Take 3 capsules by mouth 1 (one) time each day Active hydrALAZINE (APRESOLINE) 50 MG tablet Take 50 mg by mouth in the morning and 50 mg in the evening. Active isosorbide mononitrate (IMDUR) 60 MG 24 hr tablet Take 60 mg by mouth in the morning and 60 mg in the evening. Active losartan (COZAAR) 50 MG tablet Take 50 mg by mouth 1 (one) time each day Active spironolactone (ALDACTONE) 25 MG tablet Take 0.5 tablets by mouth 1 (one) time each day Active bimatoprost (LATISSE) 0.03 % ophthalmic solution Administer 1 drop into both eyes every night Place 1 drop on applicator and apply along skin of upper eyelid at base of eyelashes daily at bedtime; rpt for 2nd eye with clean applicator Active pantoprazole (PROTONIX) 20 MG EC tablet Take 20 mg by mouth in the morning and 20 mg in the evening. Take before meals. Active Multiple Vitamins-Minerals (PRESERVISION AREDS PO) Take by mouth 1 (one) time each day Active nitroglycerin (NITROSTAT) 0.[address] 0.4 mg under the tongue every 5 (five) minutes if needed for chest pain Active fluticasone (FLONASE) 50 MCG/ACT nasal spray Administer 1 spray into each nostril 1 (one) time each day if needed for rhinitis Shake gently. Before first use, prime pump. After use, clean tip and replace cap. Active mometasone (ELOCON) 0.1 % cream Apply topically 1 (one) time each day if needed Active ketoconazole (NIZORAL) 2 % cream Apply topically 1 (one) time each day Active Cholecalciferol (Vitamin D) 25 MCG (1000 UT) tablet Take by mouth 1 (one) time each day Active cycloSPORINE (RESTASIS) 0.05 % ophthalmic emulsion Administer 1 drop into both eyes in the morning and 1 drop in the evening. Active mirtazapine (REMERON) 7.5 MG tablet Take 7.5 mg by mouth every night 0.5 tab nightly Active iron polysaccharides (NU-IRON) 150 MG capsule Take 1 capsule (150 mg total) by mouth 1 (one) time each day 30 capsule 3 10/01/19 25 Active Active Problems Problem Noted Date Diagnosed Date Anemia in chronic kidney disease 05/13/2024 Proteinuria 05/13/2024 Vitamin D deficiency 05/13/2024 Hypertension 04/05/2024 Stage 3b chronic kidney disease 04/05/2024 Resolved Problems Problem Noted Date Diagnosed Date Resolved Date Hypernatremia 04/06/2024 05/13/2024 Hyperlipidemia 04/05/2024 05/13/2024 Encounters Date Type Department Care Team Description 09/30/2024 Refill [facility] [address] [place] [address] Marli Rowe RN 09/16/2024 1:00 PM CDT Office Visit [facility] [address] [place] [address] Jonatan Ruvalcaba MD Stage 3b chronic kidney disease ([facility]) (Primary Dx); Essential hypertension from Last 3 Months Family History Medical History Relation Comments Cancer Father Heart disease Mother Relation Status Comments Father Mother Social History Tobacco Use Types Packs/Day Years Used Date Smoking Tobacco: Never Smokeless Tobacco: Never Alcohol Use Standard Drinks/Week Comments Never 0 (1 standard drink = 0.6 oz pur e alcohol) Comments Unknown Sex and Gender Information Value Date Recorded Sex Assigned at Not on file Legal Sex Female 10:35 AM [facility] Gender Identity Not on file Sexual Orientation Not on file Last Filed Vital Signs Vital Sign Reading Time Taken Comments Blood Pressure 124/69 09/16/2024 12:43 PM CDT Pulse 75 09/16/2024 12:43 PM CDT Temperature - - Respiratory Rate - - Oxygen Saturation - - Inhaled Oxygen Concentration - - Weight 48.5 kg (107 lb) 09/16/2024 12:43 PM CDT Height 144.8 cm (4' 9) 09/16/2024 12:43 PM CDT Body Mass Index 23.15 09/16/2024 12:43 PM CDT Plan of Treatment Upcoming Encounters Date Type Department Care Team ([facility] st Contact Info) Description 01/25/2025 1:00 PM COMPUTER TECHNOLOGY TRAINER Office Visit [facility] [address] [address] Jonatan Ruvalcaba MD [address] [id number] Health Maintenance Due Date Last Done Comments Diabetic Foot Exam 1950 Pneumococcal PPSV23/PCV13 65 + Years / High and Highest Risk (1 of 5 - PCV) 07/30/1959 Ophthalmology Exam 04/01/2024 04/01/2023, 08/21/2018 Influenza Vaccine (#1) 2024 [place] [address] MEDICARE [facility] Care Teams Pipe Organ Mechanic Apprentice Relationship Specialty Start Date End Date Lucian Bond MD [address] [place] [address] PCP - General 03/23/24
--- OUTSIDE RECORDS SUMMARY | 2024-11-30 12:49 | XMS_ITS | Patient Health Record ---
Author Organization [facility] Address [address] [place], [place] [address] Care Team Providers Care Smog Technician Name Role Phone NIEVES DEWEY Unavailable [phone] Oscar Palomo Unavailable Unavailable Reason For Referral No Information Medications Medication SIG (Take, Route, Frequency, Duration) Notes Start Date End Date Status polyethylene glycol 400 0.004 MG/MG / propylene glycol 0.003 MG/MG Ophthalmic Gel polyethylene glycol 400 0.004 MG/MG / propylene glycol 0.003 MG/MG Ophthalmic GelOriginal Medicationpolyethylene glycol 400 0.004 MG/MG / propylene glycol 0.003 MG/MG Ophthalmic Gel *Reorder from Friendly Score for e 7 Active bimatoprost 0.1 MG/ML Ophthalmic Solution [Lumigan] bimatoprost 0.1 MG/ML Ophthalmic Solution [Lumigan]Original Medicationbimatoprost 0.1 MG/ML Ophthalmic Solution [Lumigan] *Reorder from Friendly Score for eRx and Interaction Alerts* 7 Active calcium carbonate 1500 MG / cholecalciferol 800 UNT Oral Tablet [Caltrate Plus D] ORAL calcium carbonate 1500 MG / cholecalciferol 800 UNT Oral Tablet [Caltrate Plus D]Original Medicationcalcium carbonate 1500 MG / cholecalciferol 800 UNT Oral Tablet [Caltrate Plus D] *Reorder from Friendly Score for e 7 Active Plan Of Treatment No Information Insurance Providers Payer Name Payer Address Payer Phone Subscriber Number Group Number Insured Name Patient Relationship to Insured Coverage Start Date Coverage End Date Medicare Part B [facility] [address] [facility] [place] [address] [id number] CHANO LINARES Self - patient is the insured [facility] ([facility]) ATTN CLAIMS [address] [facility] [address] [id number] CHANO LINARES Self - patient is the insured [facility] [address] [place], [place] [id number] CHANO LINARES Self - patient is the insured
--- OUTSIDE RECORDS SUMMARY | 2024-11-30 12:49 | XMS_ITS | Clinical Summary ---
Author Organization [facility] Care Team Providers Care Visual Merchandiser Name Role Phone Unavailable Primary Care Provider Unavailabl e Social History Tobacco Use Types Packs/Day Years Used Date Smoking Tobacco: Never Assessed Comments Unknown Sex and Gender Information Value Date Recorded Sex Assigned at Not on file Legal Sex Female 11:31 AM CDT Gender Identity Not on file Sexual Orientation Not on file Plan of Treatment Health Maintenance Due Date Last Done Comments Hepatitis C Virus (HCV) Screening 1940 TdaP Immunization 1940 Zoster Immunization (1 of 2) 1990 Respiratory Syncytial Virus (RSV) Immunization (Adult) (1 - 1-dose 75+ series) 07/30/2015 Pneumococcal Immunization (50+ years) (2 of 2 - PCV) 03/28/2021 03/28/2020, 01/24/2015 SARS-COV-2 Immunization (3 - season) 2023 05/12/2020, 04/18/2020 Influenza Immunization (#1) 11/08/202401/08, 01/13/2019, 12/07/2017, Additional history exists Hepatitis B Immunization Aged Out No longer eligible based on patient's age to complete this topic Human Papillomavirus (HPV) Immunization Aged Out No longer eligible based on patient's age to complete this topic Meningococcal Immunization (ACWY) Aged Out No longer eligible based on patient's age to complete this topic Rotavirus Immunization Aged Out No lo nger eligible based on patient's age to complete this topic
--- OUTSIDE RECORDS SUMMARY | 2024-11-30 12:50 | XMS_ITS | Clinical Summary ---
Author Organization [facility] Address [facility] [place] [address] Care Team Providers Care Production Pattern Maker Name Role Phone Lucian Bond MD Primary Care Provider [phone] Allergies Active Allergy Reactions Criticality Noted Date Comments Amoxicillin Nausea Only 12/14/2019 Ibuprofen Nausea Only,Nausea a nd Vomiting Low 05/05/2009 Peanut Oil Unknown 06/26/2021 Penicillins Nausea and Vomiting Low 05/05/2009 Smoke Unknown 06/26/2021 Sulfa Antibiotics Hives 05/05/2009 Other reaction(s): Urticaria Wheat Unknown 06/26/2021 Medications aspirin EC 81 MG tablet Take 81 mg by mouth daily. Active cycloSPORINE 0.05 % ophthalmic emulsion Place 1 drop into both eyes 2 (two) times daily as needed (dry eye). Active fluticasone propionate 50 MCG/ACT nasal spray 1 spray by Nasal route daily as needed. 0 Active nitroglycerin 0.[address] 0.4 mg under the tongue every 5 (five) minutes as needed for Chest Pain. Active calcium carb-cholecalci ferol 600-400 MG-UNIT Tab tablet Take 1 tablet by mouth daily. Active vitamin E 100 UNIT capsule Take 1,000 Units by mouth daily. Active bimatoprost 0.01 % Solution Place 1 drop into both eyes nightly at bedtime. Active isosorbide mononitrate ER 30 MG 24 hr tablet Take 1 tablet (30 mg total) by mouth daily. 30 tablet 0 Active atorvastatin 20 MG tablet Take 20 mg by mouth daily. 2 Active escitalopram 20 MG tablet Take 20 mg by mouth daily. 2 Active furosemide 20 MG tablet Take 20 mg by mouth daily. 2 Active losartan 50 MG tablet Take 50 mg by mouth daily. 2 Active Multiple Vitamins-Minera ls (OCUVITE-LUTEIN OR) PreserVision AREDS-2 Active Cod Liver Oil 1000 MG Cap cod liver oil Acti ve amLODIPine 10 MG tablet Take 1 tablet (10 mg total) by mouth daily. 30 tablet 2 Active famotidine 10 MG tablet Take 1 tablet (10 mg total) by mouth 2 (two) times daily. 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 Follow. Primary open angle glaucoma (POAG) of both eyes, mild stage 08/12/2018 Overview (12/14/2019): Last Assessment & Plan: [facility] for [facility] visual field (HVF) and OCT. CPM. RTC 4 mos with DFE. Myalgia, other site 07/17/2018 Neck pain 07/16/2018 Right shoulder pain 07/16/2018 Lumbar pain 07/16/2018 Breast pain 05/19/2017 Anaclitic depression 03/20/2017 Memory impairment 09/16/2016 Polyp of cervix 05/03/2016 Vaginal discharge 07/21/2014 Fibroids 06/20/2014 Pelvic mass 06/15/2014 Chest pain 05/05/2009 Family History Medical History Relation Comments Breast Cancer Other Relation Status Comments Other Social History Tobacco Use Types Packs/Day Years Used Date Smoking Tobacco: Never Smokeless Tobacco: Never Alcohol Use Standard Drinks/Week Comments Never 0 (1 standard drink = 0.6 oz pur e alcohol) AUDIT-C Answer Date Recorded Q1: How often do you have a drink containing alc ohol? Never 12/14/2019 Average Number of Drinks Not on file 020 Frequency of Binge Drinking Not on file 08/2019 Exercise Vital Sign Answer Date Recorde d On average, how many days pe r week do you engage in moderate to strenuous exercise (like a brisk walk)? 0 days 12/14/2019 On average, how many minutes do you engage in exercise at this level? 0 min 12/14/2019 Hunger Vital Sign Answer Date Recorded Within the past 12 months, y ou worried that your food would run out before you got the money to buy more. Never true 12/14/19 20 Within the past 12 months, t he food you bought just didn't last and you didn't have money to get more. Never true 12/14/2019 PRAPARE - Transportation Answer Date Re corded In the past 12 months, has l ack of transportation kept you from medical appointments or from getting medications? No 08/2019 In the past 12 months, has l ack of transportation kept you from meetings, work, or from getting things needed for daily living? No 12/14/2019 Comments No Sex and Gender Information Value Date Recorded Sex Assigned at Female 06/28/2024 12:35 PM CDT Legal Sex Female 9:26 PM CDT Gender Identity Not on file Sexual Orientation Not on file Last Filed Vital Signs Vital Sign Reading Time Taken Comments Blood Pressure 163/82 03/18/2024 7:45 PM BEREAVEMENT COORDINATOR Pulse 74 03/18/2024 4:07 PM BEREAVEMENT COORDINATOR Temperature 37.2 C (98.9 F) 03/18/2024 4:07 PM BEREAVEMENT COORDINATOR Respiratory Rate 18 03/18/2024 7:45 PM BEREAVEMENT COORDINATOR Oxygen Saturation 98% 03/18/2024 7:45 PM BEREAVEMENT COORDINATOR Inhaled Oxygen Concentration - - Weight 49.9 kg (110 lb) 03/18/2024 4:07 PM BEREAVEMENT COORDINATOR Height 144.8 cm (4' 9) 03/18/2024 4:07 PM BEREAVEMENT COORDINATOR Body Mass Index 23.8 03/18/2024 4:07 PM BEREAVEMENT COORDINATOR Plan of Treatment Health Maintenance Due Date Last Done Comments DTaP, Tdap and Td Vaccines (1 - Tdap) 07/30/1959 Pneumococcal Vaccine: 50+ Years (1 of 1 - PCV) 1990 Zoster Vaccines (1 of 2) 1990 Annual Medicare Wellness Visit 2005 RSV Immunization or 60+ Years (1 - 1-dose 75+ series) 07/30/2015 COVID-19 Vaccine (1 - season) 2024 Dexa Scan (General) Completed 04/02/2022, 04/02/2022, 10/26/2021, Additional history exists Meningococcal B Vaccine Aged Out No l onger eligible based on patient's age to complete this topic Meningococcal Vaccine Aged Out No teddy johny eligible based on patient's age to complete this topic RSV Immunizations Under 20 Months Aged Out No longer eligible based on patient's age to complete this topic Goals Goal Patient Goal Type Associated Problems Recent Progress Patient-Stated? 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 The NOF recommend adults under the age of 50 need 1000 mg of calcium and 400-800 IU of vitamin D daily. Effective therapy for the prevention and treatment of osteoporosis include bisphosphonates. Follow-up: People with diagnosed cases of osteoporosis or at high risk for fracture should have regular bone mineral density test. For patients eligible for Medicare, routine testing is allowed once every 2 years. Testing frequency can be increased to one year for patients who have rapidly progressing disease, those who are receiving or discontinuing medical therapy to restore bone mass, or have additional risk factors. Referred By: GENESIS YIN Interpreted By: Nathan Watson MD, 10/26/2021 3:03 PM Narrative 10/26/2021 3:04 PM CDT EXAMINATION: BONE DENSITY/DEXA INDICATIONS: Asymptomatic menopausal state; osteoporosis screening COMPARISON: None TECHNIQUE: DEXA bone minimal density evaluation was performed in the AP projection over the lumbar spine and over both hips in the AP projection utilizing standard imaging techniques. ASSESSMENT: The BMD measured at the AP spine L1-L4 is 0.981 g/cm? with a T-score of -0.6. The BMD measured at the left femoral neck is 0.787 g/cm? with a T-score of -0.6. The BMD measured at the left hip is 0.875 g/cm? with a T-score of -0.6. The BMD measured at the right femoral neck is 0.764 g/cm? with a T-score of - 0.8. The BMD measured at the right hip is 0.846 g/cm? with a T-score of -0.8. FRAX 10-year fracture risk: Major Osteoporotic Fracture: 5.0% Hip Fracture: 0.9% Procedure Note Nathan Watson MD - 10/26/2021 EXAMINATION: BONE DENSITY/DEXA INDICATIONS: Asymptomatic menopausal state; osteoporosis screening COMPARISON: None TECHNIQUE: DEXA bone minimal density evaluation was performed in the APprojection over the lumbar spine and over both hips in the AP projectionutilizing standard imaging techniques. ASSESSMENT: The BMD measured at the AP spine L1-L4 is 0.981 g/cm? with a T-score of-0.6. The BMD measured at the left femoral neck is 0.787 g/cm? with a T-score of-0.6. The BMD measured at the left hip is 0.875 g/cm? with a T-score of -0.6. The BMD measured at the right femoral neck is 0.764 g/cm? with a T-scoreof -0.8. The BMD measured at the right hip is 0.846 g/cm? with a T-score of -0.8. FRAX 10-year fracture risk: Major Osteoporotic Fracture: 5.0% Hip Fracture: 0.9% IMPRESSION: WHO Classification: Normal RECOMMENDATIONS: All patients should ensure an adequate intake of dietary calcium andvitamin D. The NOF recommend adults under the age of 50 need 1000 mg ofcalcium and 400-800 IU of vitamin D daily. Effective therapy for theprevention and treatment of osteoporosis include bisphosphonates. Follow-up: People with diagnosed cases of osteoporosis or at high risk for fractureshould have regular bone mineral density test. For patients eligible forMedicare, routine testing is allowed once every 2 years. Testing frequencycan be increased to one year for patients who have rapidly progressingdisease, those who are receiving or discontinuing medical therapy torestore bone mass, or have additional risk factors. Referred By: GENESIS YIN Interpreted By: Nathan Watson MD, 10/26/2021 3:03 PM Genesis Yin MD DEXA Final Result from Last 3 Months or Most Recently Relevant to Health Maintenance Insurance MEDICARE Advance Directives Documents on File Type Date Recorded Patient Vice President For Instruction Expl anation Advance Directives and Living Will 07/26/2021 10:32 AM 06/27/2021 POLST * DNR (Latest Code Status on File) Date Activated Date Inactivated Comments 06/26/2021 5:31 PM 06/28/2021 2:58 PM * Full Code Date Activated Date Inactivated Comments 12/14/2019 3:46 PM 12/15/2019 2:42 PM Care Teams Production Pattern Maker Relationship Specialty Start Date End Date Lucian Bond MD PCP - General FAMILY PRACTICE 10/29/19
--- OUTSIDE RECORDS SUMMARY | 2024-11-30 12:50 | XMS_ITS | Patient Health Record ---
Author Organization [facility] OF [facility] Address [address] [facility] [address] [place] [address] Care Team Providers Care Corporate Strategy Analyst Name Role Phone Lucian Bond MD Primary Care Provider Unavailab Chris Matos Unavailable Cornel Metcalf Unavailable [phone] Allergies Allergen (clinical drug ingredient) Drug/Non Drug Allergy documented on EMR Reaction Allergy Type Onset Date Status Chocolate (uncoded) Unknown Allergy Active IBP, Sulfa (uncoded) stomach upset Allergy active Peanuts (uncoded) Unknown Allergy Ac tive amoxicillin Amoxicillin Unknown Drug Allergy Act taz ibuprofen Ibuprofen Unknown Drug Allergy Active Reason For Referral No Information Medications Medication SIG (Take, Route, Fr equency, Duration) Notes Start Date End Date Status Losartan Potassium A ctive Spironolactone Activ e Ketoconazole 2 % Cream 1 application Ext ernally 1-2 times daily for 4-6 weeks 06/15/2024 Active Ferrous Sulfate Acti ve Escitalopram Oxalate Unknown Nitroglycerin Active Restasis Active hydrALAZINE HCl Acti ve Isosorbide Mononitrate Active PreserVision AREDS A ctive Sucralfate Active Atorvastatin Calcium Active Pantoprazole Sodium Active Fish Oil Active Iron Complex Active Vitamin D3 Active Calcium Active Ketoconazole Active Aspirin Active Social History Tobacco Use: Social History Observation Description Date Details (start date - stop date) Never Smoker NA - NA Social History Tobacco Use: Social Info Question Answer Notes Tobacco Use/Smoking Are you a nonsmoker Additional Details Category Social Info Options Details Miscellaneous: Exercise: Sedentary Occupation: Retired Living with: spouse Drugs/Alcohol: Alcohol use: [place] alcohol use Recreational drugs Patient eva s recreational drug use Problems Problem Type SNOMED Code ICD Code Onset Dates Problem Status W/U Status Risk Notes Problem Peripheral circulatory disorder associated with diabetes mellitus (015839853) Type 2 diabetes mellitus with other circulatory complications (E11.59) Active confirmed Problem Neurologic disorder associated with type II diabetes mellitus (548039032) Type 2 diabetes mellitus with other diabetic neurological complication (E11.49) Active confirmed Problem 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) Active confirmed Problem Peripheral vascular disease (971135894) PAD (peripheral artery disease) (I73.9) Active confirmed Problem Intermittent claudication (79706866) Intermittent claudication (I73.9) Active confirmed Problem Polyneuropathy due to type 2 diabetes mellitus (709791704) Type 2 diabetes mellitus with diabetic polyneuropathy, unspecified whether ad terminal makeup operator insulin use (E11.42) Active confirmed Vital Signs Height 58 in 11/04/2024 Weight 105 lbs 11/04/2024 BMI 21.94 kg/m2 11/04/2024 Encounters Encounter Location Date Provider Diagnosis 1 OF [facility] [address] [place] [id number] 11/04/2024 Alejandrobrant Pipe Type 2 diabetes mellitus with other diabetic neurological complication E11.49 ; Callus of foot L84 ; Onychogryphosis L60.2 and Tinea pedis of both feet B35.3 1 OF [facility] [address] [place] [address] 01/06/2024 Cornel Metcalf Type 2 diabetes mellitus with other diabetic neurological complication E11.49 ; Callus of foot L84 ; Onychogryphosis L60.2 ; Tinea pedis of both feet B35.3 and PAD (peripheral artery disease) I73.9 [facility] [address] [place] [address] 03/30/2024 Cornel Metcalf Type 2 diabetes mellitus with other diabetic neurological complication E11.49 ; Callus of foot L84 and Onychogryphosis L60.2 [facility] [address] [place] [address] 06/15/2024 Cornel Metcalf Type 2 diabetes mellitus with other diabetic neurological complication E11.49 ; Callus of foot L84 ; Onychogryphosis L60.2 and Tinea pedis of both feet B35.3 1 OF [facility] [address] [place] [address] 08/20/2024 Cornel Metcalf Type 2 diabetes mellitus with other diabetic neurological complication E11.49 ; Callus of foot L84 ; Onychogryphosis L60.2 and Tinea pedis of both feet B35.3 1 OF [facility] [address] [place] [address] 08/31/2024 Cornel Metcalf Type 2 diabetes mellitus with other diabetic neurological complication E11.49 1 OF [facility] [address] [place] [address] 10/01/2024 Chris Betancur Type 2 diabetes mellitus with other diabetic neurological complication E11.49 1 OF [facility] [place] [address] [place] [address] 01/14/2024 Chris Betancur 1 OF [place] [address] [place] [address] 09/09/2024 Chris Betancur 1 OF [place] [place] [address] [place] [address] 10/14/2024 Chris Betancur Assessments Encounter Date Diagnosis (ICD Code) Assessment Notes Treatment Notes Treatment Clinical Notes Section Notes 01/06/2024 Type 2 diabetes mellitus with other diabetic neurological complication (ICD-10 - E11.49) Considering the associated comorbidities and physical exam findings today, this patient is at substantial risk of developing serious foot complications in the absence of regular and professional palliative foot care. 03/30/2024 Callus of foot (ICD-10 - L84) 03/30/2024 Type 2 diabetes mellitus with other diabetic neurological complication (ICD-10 - E11.49) Considering the associated comorbidities and physical exam findings today, this patient is at substantial risk of developing serious foot complications in the absence of regular and professional palliative foot care. 06/15/2024 Callus of foot (ICD-10 - L84) 06/15/2024 Type 2 diabetes mellitus with other diabetic neurological complication (ICD-10 - E11.49) Considering the associated comorbidities and physical exam findings today, this patient is at substantial risk of developing serious foot complications in the absence of regular and professional palliative foot care. Advised to avoid walking w/o shoes on and discussed the importance of wearing properly fitted and supportive shoes and how wearing a shoe that does not fit properly can lead to blisters, open sores, infections and amputation. Recommended diabetic shoes and inserts. Patient's insurance requires diabetic shoes be provided by a contracted supplier. Rx dispensed 08/20/2024 Type 2 diabetes mellitus with other diabetic neurological complication (ICD-10 - E11.49) Considering the associated comorbidities and physical exam findings today, this patient is at substantial risk of developing serious foot complications in the absence of regular and professional palliative foot care. 08/31/2024 Type 2 diabetes mellitus with other diabetic neurological complication (ICD-10 - E11.49) 10/01/2024 Type 2 diabetes mellitus with other diabetic neurological complication (ICD-10 - E11.49) 11/04/2024 Type 2 diabetes mellitus with other diabetic neurological complication (ICD-10 - E11.49) Considering the associated comorbidities and physical exam findings today, this patient is at substantial risk of developing serious foot complications in the absence of regular and professional palliative foot care. 03/30/2024 Onychogryphosis (ICD-10 - L60.2) 08/20/2024 Callus of foot (ICD-10 - L84) 11/04/2024 Callus of foot (ICD-10 - L84) 06/15/2024 Onychogryphosis (ICD-10 - L60.2) 01/06/2024 Callus of foot (ICD-10 - L84) 01/06/2024 Onychogryphosis (ICD-10 - L60.2) 06/15/2024 Tinea pedis of both feet (ICD-10 - B35.3) Evaluation today included a review of medical history, review of systems, discussion of exam findings, and review of diagnoses and treatment options. I dicussed the nature and etiology of tinea pedis as well as the treatment options. Patient was also educated on risk factors for tinea pedis and advised to take measures to reduce the moisture about the skin of the feet. Recommended treatment today consisting of topical ketoconazole cream applied QD x 6 weeks 08/20/2024 Onychogryphosis (ICD-10 - L60.2) 11/04/2024 Onychogryphosis (ICD-10 - L60.2) 11/04/2024 Tinea pedis of both feet (ICD-10 - B35.3) 08/20/2024 Tinea pedis of both feet (ICD-10 - B35.3) Evaluation today included a review of medical history, review of systems, discussion of exam findings, and review of diagnoses and treatment options. Reviewed the nature and etiology of tinea pedis and recommended the patient continue application of the antifungal cream for at least another 2 weeks. Patient reminded of potential for recurrence and advised refills of antifungal cream were provided with original Rx and should be utilized for flareups of the condition. 01/06/2024 Tinea pedis of both feet (ICD-10 - B35.3) 01/06/2024 PAD (peripheral artery disease) (ICD-10 - I73.9) 11/04/2024 Other Plan: - Discontinue daily antifungal [...] and foot care importance Plan Of Treatment Next Appt Details Provider Name:Chris Betancur, 01/13/2025 10:30:00 AM, [address] [facility] [address] [place], [address], Insurance Providers Payer Name Payer Address Payer Phone Subscriber Number Group Number Insured Name Patient Relationship to Insured Coverage Start Date Coverage End Date Medicare [address] CATHY Quiroz [id number] Haley Cadena Self - patient is the insured [facility] and [facility] [address] [place] [phone] [id number] Haley Cadena Self - patient is the insured Medical (General) History Medical History History ICD Code Diabetes, Anemia, Arthritis, DePression, GERD, High Cholesterol, High Blood pressure, Neuropathy, Pneumonia Arthritis Depression Anemia Hernia Stroke (CVA/TIA) Gastroesophageal reflux disease (GERD) Kidney disease Diabetes High cholesterol High blood pressure Neuropathy of Feet Pneumonia Thyroid disease Surgical History Surgery Date(Month/Year) Right foot bunion 2008 Foot/Ankle surgery
--- OUTSIDE RECORDS SUMMARY | 2024-11-30 12:50 | XMS_ITS | Clinical Summary ---
Author Organization [facility] Medical [facility] [place] Address [address] [address] Care Team Providers Care Patternmaker Grader Name Role Phone Unavailable Primary Care Provider Unavailabl e Allergies Active Allergy Reactions Criticality Noted Date Comments Amoxicillin Nausea and Vomiting Low 07/15/2023 Ibuprofen Nausea and Vomiting Low 07/15/2023 Peanut Oil Unknown 07/15/2023 Sulfa (Sulfonamide Antibiotics) Unknown 09/2023 Wheat Dextrin Unknown 07/15/2023 Medications acetaminophen (TYLENOL) 325 mg tablet Take 325 mg by mouth every 4 hours as needed. Active aspirin (ECOTRIN EC) 81 mg Tablet, Delayed Release (E.C.) Take 81 mg by mouth daily. Active fluticasone propionate (FLONASE) 50 mcg/spray [place], Suspension nasal inhaler Administer 2 Sprays in each nostril 1 time daily as needed. Active hydrALAZINE (APRESOLINE) 50 mg tablet Take 50 mg by mouth 2 times daily. Active isosorbide mononitrate (IMDUR) 60 mg Extended Release 24 hour tablet Take 60 mg by mouth 2 times daily. Active losartan (COZAAR) 50 mg tablet Take 50 mg by mouth daily. Active nitroglycerin (NITROSTAT) 0.4 mg Tablet, Sublingual Place 0.4 mg under tongue every 5 minutes as needed for Chest Pain. Active pantoprazole (PROTONIX) 20 mg Tablet, Delayed Release (E.C.) Take 20 mg by mouth daily. Active spironolactone (ALDACTONE) 25 mg tablet Take 12.5 mg by mouth daily. Active vit A/vit C/vit E/zinc/copper (PRESERVISION AREDS ORAL) Take 1 Each by mouth daily. Active Fish Oil-[place]-3 Fatty Acids 360-1,200 mg Capsule Take 1 Capsule by mouth daily. Active calcium as carbonate (CALTRATE) 1,500 mg (600 mg elemental) Tablet Take 1,200 mg by mouth daily. Active brimonidine tartrate (BRIMONIDINE OP) Administer 1 Drop in both eyes daily at bedtime. Active psyllium (METAMUCIL) Packet Take 1 Packet by mouth daily. Active escitalopram oxalate (LEXAPRO) 20 mg tablet Take 20 mg by mouth daily. Active Active Problems Patient Care Coordination No te Formatting of this note migh t be different from the original. 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 No 07/17/2023 Comments No Sex and Gender Information Value Date Recorded Sex Assigned at Not on file Legal Sex Female 9:47 AM CDT Gender Identity Not on file Sexual Orientation Not on file Last Filed Vital Signs Vital Sign Reading Time Taken Comments Blood Pressure 125/60 07/28/2023 10:30 AM CDT Pulse 78 07/28/2023 10:45 AM CDT Temperature 35.9 C (96.7 F) 07/28/2023 6:49 AM CDT Respiratory Rate 28 07/28/2023 10:00 AM CDT Oxygen Saturation 99% 07/28/2023 10:45 AM CDT Inhaled Oxygen Concentration - - Weight 47.2 kg (104 lb) 07/28/2023 6:49 AM CDT Height 144.8 cm (4' 9) 07/17/2023 12:49 PM CDT Body Mass Index 22.51 07/17/2023 12:49 PM CDT Plan of Treatment Health Maintenance Due Date Last Done Comments DIABETES ANNUAL FOOT EXAM 1958 DIABETES MICROALBUMIN ANNUAL SCREEN 1958 LDL CHOLESTEROL ANNUAL 1958 DTAP/TDAP/TD VACCINES (1 - Tdap) 07/30/1959 PNEUMOCOCCAL VACCINE 50+ YEA RS (1 of 2 - PCV) 07/30/1959 ZOSTER VACCINE (1 of 2) 1990 RSV VACCINE (60+ or ) (1 - 1-dose 75+ series) 07/30/2015 DIABETES HBA1C Q 6 MONTHS 02/20/2023 08/21/2022 DIABETES ANNUAL RETINAL EXAM 04/01/2024 04/01/2023, 08/21/2018 INFLUENZA VACCINE (#1) 2024 OSTEOPOROSIS SCREENING 04/02/2027 , 04/02/2022, 10/26/2021, Additional history exists Medical Devices Implanted Type Area Employment Interviewer Device Identifier Shelf Expiration Date Model / Serial / Lot Sealant Mynx Vasc Closure 5fr Vcd [id number] - [id number] Implanted:Qty: 1 on 07/28/2023 at [facility] Closure Device Right: Groin CORDIS 06/29/2025 [id number] / / [id number] Insurance MEDICARE PART A AND B Advance Directives For more information, please contact: [phone] * Full Code (Latest Code Status on File) Date Activated Date Inactivated Comments 07/28/2023 6:16 AM 07/28/2023 1:23 PM
--- OUTSIDE RECORDS SUMMARY | 2024-11-30 12:50 | XMS_ITS | Clinical Summary ---
Author Organization [facility] Address [address] [place] [address] Care Team Providers Care Control Analyst Name Role Phone Preeti Hull MD Primary Care Provider Source Comments [facility],non-owned Affiliates and Associated Physician Practices is amultiple site organization consisting of ambulatory clinics and hospital sitesin [place], [place], [place] and [place]. This disclosure is being madepursuant to the Care Everywhere program and may not contain all information available regarding this patient. Last updated 17.[facility] Allergies Active Allergy Reactions Criticality Noted Date Comments Ibuprofen Nausea and/or Vomiting 05/05/2009 Penicillins Nausea and/or Vomiting 05/05/2009 Sulfa Drugs Urticaria 05/05/2009 Medications * Be aware that medications may not be up to date on this document. Alwaysverify current medications with the patient. lisinopril (PRINIVIL; ZESTRIL) 40 MG tablet Take 40 mg by mouth 2 times daily. Active amlodipine (NORVASC) 5 MG tablet Take 5 mg by mouth daily. Active lansoprazole (PREVACID) 30 MG capsule Take 30 mg by mouth daily before breakfast. Active simvastatin (ZOCOR) 10 MG tablet Take 10 mg by mouth at bedtime. Active bimatoprost (LUMIGAN) 0.03 % ophthalmic solution 1 Drop at bedtime. Active aspirin EC (ECOTRIN) 81 MG tablet Take 81 mg by mouth daily. Active nitroglycerin (NITROSTAT) 0.4 MG tablet Dissolve 1 Tab under the tongue every 5 minutes as needed for Angina. If pain persists and Systolic Blood Pressure greater than 100 100 0 05/06/2009 Active Active Problems Problem Noted Date Diagnosed Date Chest pain 05/05/2009 Social History Tobacco Use Types Packs/Day Years Used Date Smoking Tobacco: Never Assessed Comments Unknown Sex and Gender Information Value Date Recorded Sex Assigned at Not on file Legal Sex Female 5:09 AM COMMUNITY RELATIONS MANAGER Gender Identity Not on file Sexual Orientation Not on file Last Filed Vital Signs Vital Sign Reading Time Taken Comments Blood Pressure 115/60 05/06/2009 7:35 AM COMMUNITY RELATIONS MANAGER Pulse 62 05/06/2009 7:35 AM COMMUNITY RELATIONS MANAGER Temperature 36 C (96.8 F) 05/06/2009 7:35 AM COMMUNITY RELATIONS MANAGER Respiratory Rate 16 05/06/2009 7:35 AM COMMUNITY RELATIONS MANAGER Oxygen Saturation 99% 05/06/2009 7:35 AM COMMUNITY RELATIONS MANAGER Inhaled Oxygen Concentration 21% 05/06/2009 4 :00 AM COMMUNITY RELATIONS MANAGER Weight 54.9 kg (121 lb) 05/05/2009 9:37 PM COMMUNITY RELATIONS MANAGER Height 160 cm (5' 3) 05/05/2009 9:37 PM COMMUNITY RELATIONS MANAGER Body Mass Index 21.43 05/05/2009 9:37 PM COMMUNITY RELATIONS MANAGER Plan of Treatment Health Maintenance Due Date Last Done Comments BONE DENSITY TESTING 1940 DTAP/TDAP/TD VACCINES (1 - Tdap) 07/30/1959 PNEUMOCOCCAL VACCINE 50+ (1 of 1 - PCV) 1990 ZOSTER VACCINE (1 of 2) 1990 Respiratory Syncytial Virus (RSV) Vaccine Pt: or over 60 yrs (1 - 1-dose 75+ series) 07/30/2015 DEPRESSION SCREENING 03/10/2024 COVID-19 VACCINE (1 - 2023-2 5 season) 2024 INFLUENZA VACCINE (#1) 2024 HEPATITIS B VACCINE Aged Out No longe r eligible based on patient's age to complete this topic HIB VACCINE Aged Out No longer eligi ble based on patient's age to complete this topic HPV VACCINE Aged Out No longer eligi ble based on patient's age to complete this topic MENINGOCOCCAL (Group B) VACC INE SHARED DECISION-MAKING Aged Out No longer eligibl e based on patient's age to complete this topic MENINGOCOCCAL GROUPS A/C/Y/W VACCINE Aged Out No longer eligible b ased on patient's age to complete this topic Insurance [facility] Member Subscriber Plan / Payer (Ef fective for All Dates) Name:Chano Shields Relation to Subscriber:Self Name:CHANO SHIELDS Payer ID:[id number] (NAIC) Group ID:[id number] Type:PPO Address: [address] [place] [id number] Advance Directives * Full Code (Latest Code Status on File) Date Activated Date Inactivated Comments 05/05/2009 5:45 PM 05/06/2009 10:15 PM Care Teams Control Analyst Relationship Specialty Start Date End Date Preeti Hull MD [address] [id number] PCP - General 05/05/09
== END 2024-11-30 12:43 | disposition home or self-care (01) ==
PROVIDERS: PCP Family Medicine; Visit Provider Otolaryngology
DX: H90.3 Sensorineural hearing loss, bilateral (principal); G25.0 Essential tremor
CPT/HCPCS: 92557; 92567

== ENCOUNTER 2024-12-16 10:22 | Outpatient (CLI) | payer MEDICARE, BC, SELFPAY ==
--- NOTE | ~2024-12-16 | US_ITS ---
Clinical History: G45.9 - Transient cerebral ischemic attack, unspecified Examination: US carotid duplex BI Comparison: None Technique: Grayscale, color, duplex/spectral Doppler sonography carotid and vertebral arteries. Distal CCA and Peak ICA systolic velocities provided. Society of Radiologists in Ultrasound (SRU) consensus criteria utilized, indirectly assessing stenosis by velocities. Findings: No plaque noted Right side: CCA - 92 cm/sec. ICA - 53 cm/sec. ICA/CCA - 0.6 Left Side: CCA - 58 cm/sec. ICA - 53 cm/sec. ICA/CCA - 0.9 Normal antegrade flow measured bilateral vertebral arteries. IMPRESSION: 1. No hemodynamically significant ICA stenosis (i.e., if any stenosis, less than 50%). 2. Normal bilateral antegrade vertebral artery flow. Stenosis measured by Society of Radiologists in Ultrasound (SRU) criteria. Reviewed, dictated and finalized at location R. IMPRESSION: 1. No hemodynamically significant ICA stenosis (i.e., if any stenosis, less th an 50%). 2. Normal bilateral antegrade vertebral artery flow. Stenosis measured by Society of Radiologists in Ultrasound (SRU) criteria.
== END 2024-12-16 10:23 | disposition home or self-care (01) ==
PROVIDERS: PCP Family Medicine; Visit Provider Psychiatry & Neurology Neurology
DX: G45.9 Transient cerebral ischemic attack, unspecified (principal)
CPT/HCPCS: 93880

== ENCOUNTER 2024-12-20 13:00 | Outpatient (RCR) | payer MEDICARE, BC, SELFPAY ==
--- NOTE | 2024-11-19 14:13 | STOPEVAL1 ---
Assessment and note entered by Yanci Pickett, CONTINUOUS IM[employer]OVEMENT ENGINEER Evaluation Information Assessment Status Evaluation Diagnosis G31.84 R25.1 Subjective Information The patient is an 84 yr old female referred for outpatient speech therapy services by her neurologist due to concerns for memory and unspecified essential tremors in her voice. The patient reports she has been noticing a change in her voice over the past few months and that is has become more stained over time to the point she frequently loses her voice. She also reports forgetting the location of items in her home or things told to her if she doesn't write them down. Reported Pain Level Pain Score 0: Self Report Assessment ST Clinical Summary The patient is an 84 yr old female referred for outpatient speech therapy services by her neurologist due to concerns for memory and unspecified essential tremors in her voice. The patient reports she has been noticing a change in her voice over the past few months and that is has become more stained over time to the point she frequently loses her voice. She also reports forgetting the location of items in her home or things told to her if she doesn't write them down. The patient was administered the RIPA (Ross Information Processing Assessment) and portions of the [facility] Cognitive Evaluation. Results were as follows for the RIPA subtests given: Immediate Memory (24)80%, Temporal Orientation (30) 100%, Spatial Orientation (30) 100%, Problem Solving and Abstract Reasoning (28) 93%, Organization (23) 73%, Auditory Processing and Retention (30) 100% Results for the [facility] Cognitive Evaluation subtests are as follows: Complex Problem Solving 100%, Functional Math 90%, Reading 100% In addition the patients voice was probed due to notable/reported essential tremors. Maximum Phonation Time (MPT) Sustained Ah/E 5-7 (decreased breath support), Loudness: Utilizing voice meter in close proximity AH/E produced at 55-60 decibels , phrase/sentence production 55 decibels. Pitch: Attempts with sustained phonation of vowels cold not be detected by the voice meter application for assessing a level. Respiration: The patient could sustain respiration for a count of 1-5 before losing adequate breath support. Vocal Quality: Overall strained/harsh vocal quality at phrase/ sentence level. ENT Consult report by Dr. Bishop Lugo [facility] has been requested to assist in treatment plan The patient demonstrates: Moderate deficits for memory recall increasing with material length and/ or delay. Mild deficits for abstract reasoning/ problem solving, and notable vocal tremors with a significantly strained vocal quality. Recommend: Outpatient Speech Services 1x week x 10 visits to address Cognition and Voice. Plan of Care Interventions Treatment of Swallowing Dysfunction ST Services Indicated Yes Treatment Frequency and 1x week x 10 visits. Duration These treatments will address the objective and functional deficits as defined above. The patient will be advanced safely and appropriately in order for the patient to progress towards his/her prior level of function. Additional exercises will be introduced and as well as a comprehensive home exercise program upon discharge, if needed, ?to ensure carryover of functional gains achieved in the clinic. This treatment plan has been reviewed and agreement upon by the patient.
--- NOTE | 2024-11-19 14:13 | OPREHPOC ---
Outpatient Therapy Plan of Care This is a Multidisciplinary Plan of Care that may contain components documented by all disciplines (PT, OT, and ST.) ST Problem 1 ST Problem #[address] Goal 1 Goal / Goal Update The patient will participate in home programming to improve carry over/generalization of skills to the home environment. Target Visit [address] Problem #[address] Goal 1 Goal / Goal Update Cognition: 1. The patient will recall moderately complex paragraph length information for 2-3 details using compensatory techniques with 85% accuracy and minimal cues. 2. The patient will complete simple reasoning for everyday circumstances with 85% accuracy and minimal cues. Target Visit 10 ST Goal 1 Goal / Goal Update Voice: 1. The patient will be provided techniques to improve vocal hygiene. 2. The patient will be provided a HEP with cervical relaxation and diaphragmatic breathing exercises to decrease laryngeal tension and improve laryngeal control of airflow. 3. The patient will improve self-monitoring of vocal quality, onset of phonation, volume, and laryngeal tension during conversation voice 80% of the time minimal cues. Target Visit 10
--- NOTE | 2024-12-20 13:37 | STOPDC ---
Assessment and note entered by Yanci Pickett, PROFESSOR OF FOREST PLANNING Evaluation Information Assessment Status Discharge Reported Pain Level Pain Score 0: Self Report Assessment ST Clinical Summary Initial Evaluation: The patient is an 84 yr old female referred for outpatient speech therapy services by her neurologist due to concerns for memory and unspecified essential tremors in her voice. The patient reports she has been noticing a change in her voice over the past few months and that is has become more stained over time to the point she frequently loses her voice. She also reports forgetting the location of items in her home or things told to her if she doesn't write them down. The patient was administered the RIPA (Ross Information Processing Assessment) and portions of the [facility] Cognitive Evaluation. Results were as follows for the RIPA subtests given: Immediate Memory (24)80%, Temporal Orientation (30) 100%, Spatial Orientation (30) 100%, Problem Solving and Abstract Reasoning (28) 93%, Organization (23) 73%, Auditory Processing and Retention (30) 100% Results for the [facility] Cognitive Evaluation subtests are as follows: Complex Problem Solving 100%, Functional Math 90%, Reading 100% In addition the patients voice was probed due to notable/reported essential tremors. Maximum Phonation Time (MPT) Sustained Ah/E 5-7 (decreased breath support), Loudness: Utilizing voice meter in close proximity AH/E produced at 55-60 decibels , phrase/sentence production 55 decibels. Pitch: Attempts with sustained phonation of vowels cold not be detected by the voice meter application for assessing a level. Respiration: The patient could sustain respiration for a count of 1-5 before losing adequate breath support. Vocal Quality: Overall strained/harsh vocal quality at phrase/ sentence level. ENT Consult report by Dr. Bishop Lugo [facility] has been requested to assist in treatment plan The patient demonstrates: Moderate deficits for memory recall increasing with material length and/ or delay. Mild deficits for abstract reasoning/ problem solving, and notable vocal tremors with a significantly strained vocal quality. Recommend: Outpatient Speech Services 1x week x 10 visits to address Cognition and Voice. Discharge: 12/20/24: The patient has demonstrated marked improvement for memory/recall (Moderate complex material, average 2-3 details 90%) and functional reasoning 90%. she has been provided with a HEP(Home Exercise Program) for vocal hygiene to reduce abusive behaviors that may contribute to vocal straw, cervical relaxation exercises, techniques for diaphragmatic breathing, and incorporation of respiration with phonation for ease of voicing. She demonstrates use of techniques at the sentence and conversation level 85% accuracy. The patient feels she can continue her HEP for her voice to help maintain a improved vocal quality and has therefore requested discharge on today. Thank you for the consult. Plan of Care ST Services Indicated No
== END 2024-12-20 16:41 | disposition home or self-care (01) ==
LOC: ANHST 13:00
PROVIDERS: PCP Family Medicine; Visit Provider Psychiatry & Neurology Neurology
DX: R25.1 Tremor, unspecified (principal); G31.84 Mild cognitive impairment of uncertain or unknown etiology; R49.0 Dysphonia
CPT/HCPCS: 92507; 92523; 92557; 92567